=== PATIENT | female | born 1960 | race African-American/Black ===

== ENCOUNTER → 2017-03-30 | Outpatient (CLI) | payer BC, MEDICARE ==
[2017-03-30 12:26] LABS: HEMATOCRIT 25.1 % (36.0-47.0); HEMOGLOBIN 8.5 g/dL (12.0-15.5); HGB HCT DIFFERENCE 0.4; MEAN CORPUSCULAR HEMOGLOBIN 35.4 pg (27.0-33.4); MEAN CORPUSCULAR VOLUME 104 fl (80-97); RED BLOOD COUNT 2.41 10^6/uL (3.72-5.28); RED CELL DISTRIBUTION WIDTH 16.7 % (11.5-14.0); WHITE BLOOD COUNT 4.7 10^3/uL (4.0-10.5)
[2017-03-30 12:42] LABS: ALANINE AMINOTRANSFERASE 29 U/L (9-52); ALKALINE PHOSPHATASE 82 U/L (38-126); ANION GAP 12 (5-19); ASPARTATE AMINO TRANSFERASE 35 U/L (14-36); BILIRUBIN,DIRECT 0.5 mg/dL (0.0-0.4); BILIRUBIN,TOTAL 2.1 mg/dL (0.2-1.3); BLOOD UREA NITROGEN 11 mg/dL (7-20); CALCIUM 9.1 mg/dL (8.4-10.2); CARBON DIOXIDE 28 mmol/L (22-30); CHLORIDE 101 mmol/L (98-107); CHOLESTEROL 143.38 mg/dL (0-200); CREATININE RESULT 0.66 mg/dL (0.52-1.25); Direct HDL 53 mg/dL (>40); GLUCOSE 91 mg/dL (75-110); POTASSIUM 4.2 mmol/L (3.6-5.0); SODIUM 140.7 mmol/L (137-145); TOTAL PROTEIN 7.6 g/dL (6.3-8.2); TRIGLYCERIDES 78 mg/dL (<150)
[2017-03-30 12:53] LABS: DIRECT LDL 54 mg/dL (<100)
[2017-03-30 13:05] LABS: BASOPHILS % (MANUAL) 1 % (0-2); EOSINOPHILS % (MANUAL) 3 % (0-6); LYMPHOCYTES % (MANUAL) 44 % (13-45); NUCLEATED RED BLOOD CELLS 4 /100 WBC (0); TOTAL CELLS COUNTED 100
[2017-03-30 13:06] LABS: HYPOCHROMASIA 1+
[2017-03-30 13:07] LABS: ANISOCYTOSIS 1+; OVALOCYTES SLIGHT; POIKILOCYTOSIS 2+; POLYCHROMASIA 1+; SCHISTOCYTES SLIGHT; TARGET CELLS 1+; TOXIC GRANULATION SLIGHT; TOXIC VACUOLATION PRESENT
[2017-03-30 13:09] LABS: HOWELL-JOLLY BODIES PRESENT
== END ==
LOC: LAB 12:06
PROVIDERS: ATTEND Internal Medicine
DX: E78.2 Mixed hyperlipidemia (principal); Z13.1 Encounter for screening for diabetes mellitus; E55.9 Vitamin D deficiency, unspecified; E66.9 Obesity, unspecified; Z79.899 Other long term (current) drug therapy
CPT/HCPCS: 36415; 80053; 80061; 82306; 84443; 85025

== ENCOUNTER 2017-05-09 04:57 | Emergency (ER) | payer BC, MEDICARE ==
[2017-05-09] MEDS ORDERED: NORMAL SALINE 1000 ML 1,000 ML IV ONE (07:00)
[2017-05-09 08:26] LABS: HEMATOCRIT 27.7 % (36.0-47.0); HEMOGLOBIN 9.4 g/dL (12.0-15.5); HGB HCT DIFFERENCE 0.5; MEAN CORPUSCULAR HEMOGLOBIN 34.6 pg (27.0-33.4); MEAN CORPUSCULAR VOLUME 102 fl (80-97); RED BLOOD COUNT 2.72 10^6/uL (3.72-5.28); WHITE BLOOD COUNT 5.6 10^3/uL (4.0-10.5)
[2017-05-09 08:27] LABS: APPEARANCE,URINE CLEAR; BILIRUBIN,URINE NEGATIVE (NEGATIVE); GLUCOSE, URINE NEGATIVE (NEGATIVE); KETONES,URINE NEGATIVE (NEGATIVE); LEUKOCYTE ESTERASE,URINE TRACE (NEGATIVE); NITRITE,URINE NEGATIVE (NEGATIVE); PROTEIN,URINE NEGATIVE (NEGATIVE); URINE SPECIFIC GRAVITY 1.006
[2017-05-09 08:40] LABS: ANION GAP 14 (5-19); BLOOD UREA NITROGEN 13 mg/dL (7-20); CALCIUM 9.4 mg/dL (8.4-10.2); CARBON DIOXIDE 27 mmol/L (22-30); CHLORIDE 102 mmol/L (98-107); CREATININE RESULT 0.65 mg/dL (0.52-1.25); GLUCOSE 116 mg/dL (75-110); LIPASE 123.2 U/L (23-300); POTASSIUM 4.3 mmol/L (3.6-5.0); SODIUM 142.8 mmol/L (137-145)
[2017-05-09] MEDS ORDERED: CEFTRIAXONE 1 GM/D5W RTU 50 ML IV ONE (08:46)
[2017-05-09 08:53] LABS: BAND NEUTROPHILS % (MANUAL) 1 % (3-5); BASOPHILS % (MANUAL) 0 % (0-2); EOSINOPHILS % (MANUAL) 3 % (0-6); LYMPHOCYTES % (MANUAL) 35 % (13-45); NUCLEATED RED BLOOD CELLS 3 /100 WBC (0); TOTAL CELLS COUNTED 100
[2017-05-09 08:55] LABS: ANISOCYTOSIS 1+; OVALOCYTES 1+; POIKILOCYTOSIS 1+; TARGET CELLS 1+; TOXIC GRANULATION 1+
--- NOTE | 2017-05-09 08:58 | RADIOLOGY REPORT (SQ) ---
EXAM DESCRIPTION: CHEST PA/LAT COMPLETED DATE/TIME: 05/09/2017 8:45 am REASON FOR STUDY: dizzy COMPARISON: 07/01/2013 EXAM PARAMETERS: NUMBER OF VIEWS: two views TECHNIQUE: Digital Frontal and Lateral radiographic views of the chest acquired. RADIATION DOSE: NA LIMITATIONS: none FINDINGS: LUNGS AND PLEURA: Minimal left basilar scarring. No acute opacities, masses or pneumothor ax. No pleural effusion. MEDIASTINUM AND HILAR STRUCTURES: No masses or contour abnormalities. HEART AND VASCULAR STRUCTURES: Heart normal size. No evidence for failure. BONES: No acute findings. Chronic sclerosis of the humeral heads. HARDWARE: None in the chest. OTHER: No other significant finding. IMPRESSION: No evidence of acute cardiopulmonary disease. TECHNICAL DOCUMENTATION: JOB ID: [id number] [employer]- All Rights Reserved
--- NOTE | 2017-05-09 09:20 | ER Document Report ---
ED General - General Chief Complaint: Dizziness Stated Complaint: DIZZINESS Time Seen by Provider: 05/09/17 06:59 TRAVEL OUTSIDE OF THE [place] IN LAST 30 DAYS: No - HPI Patient complains to provider of: Dizziness Notes: Patient states dizziness ongoing for the last 24 hours. Patient states worse when changing from sitting to standing. Patient states she has been drinking plenty of fluids denies any excessive out door activities. 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 Patient states she has Vicodin at home however has not taken anything for her pain. Denies any trauma. Patient denies fevers chills nausea vomiting. - Related Data Allergies/Adverse Reactions: Shellfish * [Shellfish] Allergy (Unknown, Verified 08/05/14 19:29) ketorolac [Ketorolac] Allergy (Verified 08/05/14 19:29) Past Medical History - Social History Smoking Status: Never Smoker Chew tobacco use (# tins/day): No Frequency of alcohol use: Occasional Drug Abuse: None Family History: Reviewed & Not Pertinent Patient has suicidal ideation: No Patient has homicidal ideation: No - Past Medical History Cardiac Medical History: Reports: Hx Heart Murmur Pulmonary Medical History: Denies: Hx Tuberculosis Renal/ Medical History: Denies: Hx Peritoneal Dialysis Psychiatric Medical History: Denies: Hx Depression Past Surgical History: Reports: Hx Orthopedic Surgery - L hip replacement. Denies: Hx Pacemaker - Immunizations Hx Diphtheria, Pertussis, Tetanus Vaccination: Yes Hx Pneumococcal Vaccination: 11/20/09 Review of Systems - Review of Systems Constitutional: No symptoms reported EENT: No symptoms reported Cardiovascular: No symptoms reported Respiratory: No symptoms reported Gastrointestinal: No symptoms reported Genitourinary: No symptoms reported Female Genitourinary: No symptoms reported Musculoskeletal: No symptoms reported Skin: No symptoms reported Hematologic/Lymphatic: No symptoms reported Neurological/Psychological: Other - Dizziness -: Yes All other systems reviewed and negative Physical Exam - Vital signs Vitals: Temp Pulse Resp BP Pulse Ox 97.5 F 75 18 130/73 H 99 05/09/17 05:02 05/09/17 05:02 05/09/17 05:02 05/09/17 05:02 05/09/17 05:02 Interpretation: Normal - General General appearance: Appears well, Alert - HEENT Head: Normocephalic, Atraumatic Eyes: Normal Pupils: PERRL - Respiratory Respiratory status: No respiratory distress Chest status: Nontender Breath sounds: Normal Chest palpation: Normal - Cardiovascular Rhythm: Regular Heart sounds: Normal auscultation Murmur: No - Abdominal Inspection: Normal Distension: No distension Bowel sounds: Normal Tenderness: Nontender Organomegaly: No organomegaly - Back Back: Normal, Nontender - Extremities General upper extremity: Normal inspection, Nontender, Normal color, Normal ROM , Normal temperature General lower extremity: Normal inspection, Nontender, Normal color, Normal ROM , Normal temperature, Normal weight bearing. No: Kathy's sign - Neurological Neuro grossly intact: Yes Cognition: Normal Orientation: AAOx4 [place] Coma Scale Eye Opening: Spontaneous [place] Coma Scale Verbal: Oriented Wendy Coma Scale Motor: Obeys Commands [place] Coma Scale Total: 15 Speech: Normal Motor strength normal: LUE, RUE, LLE, RLE Sensory: Normal - Psychological Associated symptoms: Normal affect, Normal mood - Skin Skin Temperature: Warm Skin Moisture: Dry Skin Color: Normal Course - Re-evaluation Re-evalutation: 05/09/17 14:25 Orthostatics were positive. Urinalysis shows possible beginning of urinary tract infection. Patient was given a dose of antibiotics and will be discharged home on prescription antibiotics. Patient is encouraged follow-up with her primary care physician for further evaluation and encouraged to drink plenty of fluids - Vital Signs Vital signs: Temp Pulse Resp BP Pulse Ox 98.1 F 71 18 120/72 99 05/09/17 10:31 05/09/17 10:31 05/09/17 10:31 05/09/17 10:31 05/09/17 10:31 - Laboratory Result Diagrams: 05/09/17 08:05 05/09/17 08:05 Laboratory results interpreted by me: 05/09/17 05/09/17 05/09/17 08:05 08:05 08:05 RBC 2.72 L Hgb 9.4 L Hct 27.7 L MCV 102 H MCH 34.6 H RDW 17.0 H Band Neutrophils % 1 L Metamyelocytes % 1 H Retic Count (auto) 6.46 H Absolute Retic 0.176 H Glucose 116 H Urine Urobilinogen 4.0 H Ur Leukocyte Esterase TRACE H Discharge - Discharge Clinical Impression: Orthostatic dizziness Urinary tract infection Qualifiers: Urinary tract infection type: site unspecified Hematuria presence: without hematuria Qualified Code(s): N39.0 - Urinary tract infection, site not specified Disposition: HOME, SELF-CARE Instructions: Urinary Tract Infection ([facility]), Dizziness ([facility]), Dehydration ([facility]) Additional Instructions: Your vital signs today and laboratory findings are suggestive of dehydration. Your urinalysis also shows signs of infection. We will treat her infection with antibiotic on Macrobid. I will send her urine for culture. Culture results will take approximately 48-72 hours. If we need to change her antibiotics we can contact you. I would also recommend she follow-up with your doctor in 3-5 days for reevaluation. Please make sure that she drink plenty water to stay hydrated. Prescriptions: Nitrofurantoin/Nitrofuran Mac [Macrobid 100 mg Capsule] 1 tab PO BID #14 capsule Forms: Return to Work Referrals: PANKAJ CARDONA MD [Primary Care Provider] - Follow up in 3-5 days
[2017-05-09 10:32] VITALS: BP 120/72
--- NOTE | 2017-05-09 12:40 | EKG REPORT ---
SEVERITY:- BORDERLINE ECG - SINUS RHYTHM BORDERLINE T ABNORMALITIES, ANTERIOR LEADS : Confirmed by: Christina Butler MD 09-May-2017 12:39:55
== END 2017-05-09 10:32 | disposition home or self-care (01) ==
LOC: ER 04:57
DX: R42 Dizziness and giddiness (principal); N39.0 Urinary tract infection, site not specified; D57.1 Sickle-cell disease without crisis; Z91.013 Allergy to seafood; Z88.8 Allergy status to other drugs, medicaments and biological substances
CPT/HCPCS: 93005; 99284; 96361; 96365; 36415; 87086; 83690; 85025; 85045; 80048; 81001; 71020; 93010; J7030; J0696

== ENCOUNTER → 2017-06-05 | Outpatient (CLI) | payer BC, MEDICARE ==
--- NOTE | 2017-06-05 15:27 | RADIOLOGY REPORT (SQ) ---
EXAM DESCRIPTION: HIP LEFT AP/LATERAL COMPLETED DATE/TIME: 06/05/2017 2:38 pm REASON FOR STUDY: PAIN IN LEFT HIP (M25.552) M24.662 ANKYLOSIS, LEFT KNEE M25.552 PAIN IN LEFT HIP COMPARISON: 06/22/2016 NUMBER OF VIEWS: Two views. TECHNIQUE: AP pelvis and additional frog-leg view of the left hip. LIMITATIONS: None. FINDINGS: MINERALIZATION: Normal. LEFT HIP: Status post left hip arthroplasty. Acetabular cup and femoral stem in good position. No l oosening. No acute bony changes. Appearance is stable when compared to the previous study. RIGHT HIP: Slightly sclerotic change right femoral head that is stable. Contour normal. Avascular n ecrosis may be a consideration. PUBIS AND ISCHIUM: No fracture. PELVIS: No fracture. SACRUM: No fracture or dislocation. No worrisome bone lesions. LOWER LUMBAR SPINE: Mild to moderate disc degeneration L4-L5. SOFT TISSUES: No findings. OTHER: No other significant finding. IMPRESSION: Status post left hip arthroplasty. Femoral stem and acetabular cup her in good position . No acute findings and no interval change since previous study. Slightly sclerotic appearance of t he right femoral head. See above discussion. TECHNICAL DOCUMENTATION: JOB ID: [id number] [employer]- All Rights Reserved
--- NOTE | 2017-06-05 15:36 | RADIOLOGY REPORT (SQ) ---
EXAM DESCRIPTION: FEMUR LEFT COMPLETED DATE/TIME: 06/05/2017 2:38 pm REASON FOR STUDY: PAIN IN LEFT HIP (M25.552) M24.662 ANKYLOSIS, LEFT KNEE M25.552 PAIN IN LEFT HIP COMPARISON: None. NUMBER OF VIEWS: Two views. TECHNIQUE: Two radiographic images acquired of the left femur to include hip and knee in at least on e projection. LIMITATIONS: None. FINDINGS: MINERALIZATION: Geographic pattern of the femoral condyles that is predominantly radioluc ent. . BONES: Femoral shaft is intact with no acute findings. Femoral stem noted proximal femur related to previous hip arthroplasty. SOFT TISSUES: No obvious swelling or foreign body. OTHER: No other significant finding. IMPRESSION: Alteration of the marrow pattern of the distal femur most likely related to infarction a ssociated with the history of sickle cell disease. No acute findings. TECHNICAL DOCUMENTATION: JOB ID: [id number] [employer]- All Rights Reserved
--- NOTE | 2017-06-05 15:38 | RADIOLOGY REPORT (SQ) ---
EXAM DESCRIPTION: KNEE LEFT 4 VIEW COMPLETED DATE/TIME: 06/05/2017 2:38 pm REASON FOR STUDY: ANKYLOSIS, LEFT KNEE (M24.662) M24.662 ANKYLOSIS, LEFT KNEE M25.552 PAIN IN LEFT HIP COMPARISON: None. NUMBER OF VIEWS: Four views. TECHNIQUE: AP, lateral, and both oblique radiographic images acquired of the left knee. LIMITATIONS: None. FINDINGS: MINERALIZATION: Alteration of the trabecular pattern of the femoral condyles and adjacent tibia plateau which is predominantly radiolucent with some associated sclerotic change. BONES: No acute fracture or dislocation. No worrisome bone lesions. JOINT: No effusion. No ankylosis. SOFT TISSUES: No soft tissue swelling. No radio-opaque foreign body. OTHER: No other significant finding. IMPRESSION: Alteration of the trabecular pattern of the femoral condyles and adjacent tibial plateau most likely root associated with bony infarcts secondary to the history of sickle cell disease. No fracture or other acute findings. No ankylosis. TECHNICAL DOCUMENTATION: JOB ID: [id number] [employer]- All Rights Reserved
== END ==
LOC: RAD 13:52
PROVIDERS: ATTEND Internal Medicine
DX: M24.662 Ankylosis, left knee (principal); M25.552 Pain in left hip

== ENCOUNTER → 2018-04-06 | Outpatient (CLI) | payer MEDICARE ==
[2018-04-06 10:10] LABS: HEMATOCRIT 25.4 % (36.0-47.0); HEMOGLOBIN 8.7 g/dL (12.0-15.5); MEAN CORPUSCULAR HEMOGLOBIN 36.1 pg (27.0-33.4); MEAN CORPUSCULAR HGB CONC 34.1 g/dL (32.0-36.0); MEAN CORPUSCULAR VOLUME 106 fl (80-97); PLATELET COUNT 316 10^3/uL (150-450); RED CELL DISTRIBUTION WIDTH 16.8 % (11.5-14.0); WHITE BLOOD COUNT 3.7 10^3/uL (4.0-10.5)
[2018-04-06 10:35] LABS: ABSOLUTE LYMPHOCYTES# (MANUAL) 1.7 10^3/uL (0.5-4.7); ABSOLUTE MONOCYTES # (MANUAL) 0.3 10^3/uL (0.1-1.4); ABSOLUTE NEUTROPHILS# (MANUAL) 1.4 10^3/uL (1.7-8.2); BASOPHILS % (MANUAL) 0 % (0-2); EOSINOPHILS % (MANUAL) 8 % (0-6); LYMPHOCYTES % (MANUAL) 44 % (13-45); MONOCYTES % (MANUAL) 9 % (3-13); NUCLEATED RED BLOOD CELLS 1 /100 WBC (0); SEGMENTED NEUTROPHILS % (MAN) 38 % (42-78); TOTAL CELLS COUNTED 100
[2018-04-06 10:37] LABS: ANISOCYTOSIS 1+; OVALOCYTES 1+; POIKILOCYTOSIS 1+
[2018-04-06 10:38] LABS: PLATELET COMMENT ADEQUATE; ROULEAUX 1+; SCHISTOCYTES SLIGHT; SICKLE RED CELLS 1+; TARGET CELLS 2+; TEAR DROP CELLS SLIGHT
[2018-04-06 10:49] LABS: TRIGLYCERIDES 74 mg/dL (<150)
[2018-04-06 11:00] LABS: DIRECT LDL 55 mg/dL (<100)
[2018-04-09 17:04] LABS: ALANINE AMINOTRANSFERASE 32 U/L (9-52); ALKALINE PHOSPHATASE 74 U/L (38-126); ANION GAP 13 (5-19); ASPARTATE AMINO TRANSFERASE 37 U/L (14-36); BILIRUBIN,DIRECT 0.4 mg/dL (0.0-0.4); BILIRUBIN,TOTAL 1.2 mg/dL (0.2-1.3); BLOOD UREA NITROGEN 18 mg/dL (7-20); CALCIUM 9.2 mg/dL (8.4-10.2); CARBON DIOXIDE 26 mmol/L (22-30); CHLORIDE 104 mmol/L (98-107); GLUCOSE 107 mg/dL (75-110); POTASSIUM 4.1 mmol/L (3.6-5.0); SODIUM 143.2 mmol/L (137-145); TOTAL PROTEIN 7.8 g/dL (6.3-8.2)
== END ==
LOC: LAB 09:26
PROVIDERS: ATTEND Internal Medicine
DX: Z00.00 Encounter for general adult medical examination without abnormal findings (principal); E66.9 Obesity, unspecified; E55.9 Vitamin D deficiency, unspecified; Z13.1 Encounter for screening for diabetes mellitus; Z13.29 Encounter for screening for other suspected endocrine disorder
CPT/HCPCS: 36415; 80053; 80061; 82306; 83036; 84443; 85025

== ENCOUNTER 2018-09-21 23:13 | Emergency (ER) | payer MEDICARE ==
[2018-09-22] MEDS ORDERED: METOCLOPRAMIDE HCL INJ/PF 10 MG/2 ML SDV IV ONE (00:15)
[2018-09-22] MEDS ORDERED: NORMAL SALINE 1000 ML 1,000 ML IV ONE (00:15)
[2018-09-22] MEDS ORDERED: DIPHENHYDRAMINE HCL 50 MG/ML VIAL IV ONE (00:15)
[2018-09-22 01:11] LABS: ABSOLUTE RETICS # 0.233 10^6/uL (0.028-0.122); HEMATOCRIT 22.5 % (36.0-47.0); MEAN CORPUSCULAR HEMOGLOBIN 34.1 pg (27.0-33.4); MEAN CORPUSCULAR HGB CONC 35.8 g/dL (32.0-36.0); MEAN CORPUSCULAR VOLUME 95 fl (80-97); PLATELET COUNT 351 10^3/uL (150-450); RED BLOOD COUNT 2.36 10^6/uL (3.72-5.28); RED CELL DISTRIBUTION WIDTH 17.9 % (11.5-14.0); WHITE BLOOD COUNT 7.6 10^3/uL (4.0-10.5)
[2018-09-22 01:17] LABS: ANION GAP 11 (5-19); BLOOD UREA NITROGEN 15 mg/dL (7-20); CALCIUM 9.4 mg/dL (8.4-10.2); CARBON DIOXIDE 26 mmol/L (22-30); CHLORIDE 105 mmol/L (98-107); GLUCOSE 115 mg/dL (75-110); POTASSIUM 4.1 mmol/L (3.6-5.0); SODIUM 142.4 mmol/L (137-145)
[2018-09-22 01:31] LABS: ABSOLUTE LYMPHOCYTES# (MANUAL) 2.3 10^3/uL (0.5-4.7); ABSOLUTE MONOCYTES # (MANUAL) 0.7 10^3/uL (0.1-1.4); ABSOLUTE NEUTROPHILS# (MANUAL) 4.6 10^3/uL (1.7-8.2); ANISOCYTOSIS 1+; BASOPHILS % (MANUAL) 0 % (0-2); EOSINOPHILS % (MANUAL) 1 % (0-6); LYMPHOCYTES % (MANUAL) 30 % (13-45); MONOCYTES % (MANUAL) 9 % (3-13); NUCLEATED RED BLOOD CELLS 3 /100 WBC (0); POLYCHROMASIA 1+; SEGMENTED NEUTROPHILS % (MAN) 60 % (42-78); TOTAL CELLS COUNTED 100
[2018-09-22 01:32] LABS: PLATELET COMMENT ADEQUATE; SICKLE RED CELLS 1+
[2018-09-22] MEDS ORDERED: HYDROMORPHONE HCL INJ/PF 2 MG/ML AMPULE IV ONE ×2 (02:29→04:14)
[2018-09-22] MEDS ORDERED: ONDANSETRON HCL INJ/PF 4 MG/2 ML SDV IV ONE (02:30)
--- NOTE | 2018-09-22 03:53 | RADIOLOGY REPORT (SQ) ---
EXAM DESCRIPTION: CT HEAD ANGIOGRAPHY WITHOUT THEN WITH IV CONTRAST COMPLETED DATE/TME: 09/22/2018 02:30 CLINICAL HISTORY: 58 years, Female, HEADACHE (Please obtain venous phase imaging) COMPARISON: None. TECHNIQUE: 637 Images stored on PACS. All CT scanners at this facility use dose modulation, iterative reconstruction, and/or weight based dosing when appropriate to reduce radiation dose to as low as reasonably achievable (ALARA). CTA of the brain was performed. Axial images were obtained with coronal and sagittal MIPS reconstructions imaging was also performed prior to contrast administration. [facility]: Dose Right [facility]: CareDose [facility]: Dose Right [facility]: Teradose 4D [facility]: BookFresh LIMITATIONS: None. FINDINGS: Precontrast images show extensive/dense pleural-based calcifications in the frontoparietal region and left paramedian falx. The vertebral basilar system is unremarkable. Negative for basilar tip aneurysm. The petrous portions of the bilateral internal carotid arteries are widely patent and unremarkable. Remaining intracranial portions of the internal carotid arteries are patent and unremarkable. Moderate degree of venous interference however no CTA evidence for aneurysm or arteriovenous malformation. No CTA evidence for stenosis, vascular encasement, or displacement. IMPRESSION: Unremarkable CTA of the brain TECHNICAL DOCUMENTATION: Quality ID # [id number]: Final reports with documentation of one or more dose reduction techniques (e.g., Automated exposure control, adjustment of the mA and/or kV according to patient size, use of iterative reconstruction technique) 2010 [employer]- All Rights Reserved
--- NOTE | 2018-09-22 04:16 | ER Document Report ---
ED General - General Chief Complaint: Headache Stated Complaint: HEADACHE Time Seen by Provider: 09/22/18 00:04 Notes: Patient is a pleasant 48-year-old female who has a history of sickle cell disease who presents with complaint of a intermittent headache that is been ongoing since Monday of this week. Patient says the headache comes and goes. Says gradual in onset. She usually gets some pressure pain behind the eyes. Usually bilateral. Says sometimes it will go into the top of her head. Some nausea but no vomiting. Lights do make the headache worse. No previous history of migraines. She saw this week and they prescribed her Maxalt. She says it helps some but does not completely relieve the headache and therefore she came to the ER tonight. No chest pain. No shortness of breath. No joint pain. No other pains that she would typically have with a sickle cell crisis. No fevers or recent infections. No focal weakness or numbness. No focal neurologic deficits. No strokelike symptoms. TRAVEL OUTSIDE OF THE [place] IN LAST 30 DAYS: No - Related Data Allergies/Adverse Reactions: Shellfish * [Shellfish] Allergy (Unknown, Verified 09/22/17 11:37) ketorolac [Ketorolac] Allergy (Verified 09/22/17 11:37) Past Medical History - Social History Smoking Status: Unknown if Ever Smoked Frequency of alcohol use: None Drug Abuse: None Family History: Reviewed & Not Pertinent Patient has suicidal ideation: No Patient has homicidal ideation: No - Past Medical History Cardiac Medical History: Reports: Hx Heart Murmur Pulmonary Medical History: Denies: Hx Tuberculosis Renal/ Medical History: Denies: Hx Peritoneal Dialysis Psychiatric Medical History: Denies: Hx Depression Past Surgical History: Reports: Hx Orthopedic Surgery - L hip replacement. Denies: Hx Pacemaker - Immunizations Hx Diphtheria, Pertussis, Tetanus Vaccination: Yes Hx Pneumococcal Vaccination: 11/20/09 Review of Systems - Review of Systems Notes: My Normal Review Basic REVIEW OF SYSTEMS: CONSTITUTIONAL : Denies fever, chills, or sweats. Denies recent illness. EENT: Denies eye, ear, throat, or mouth pain or symptoms. Denies nasal or sinus congestion. CARDIOVASCULAR: Denies chest pain. RESPIRATORY: Denies cough, cold, or chest congestion. Denies shortness of breath, difficulty breathing, or wheezing. GASTROINTESTINAL: Denies abdominal pain. Denies nausea, vomiting, or diarrhea. MUSCULOSKELETAL: Denies neck or back pain or joint pain or swelling. SKIN: Denies rash or skin lesions. HEMATOLOGIC : Sickle cell disease NEUROLOGICAL: Denies altered mental status or loss of consciousness. Has a headache. Denies weakness or paralysis or loss of use of either side. Denies problems with gait or speech. Denies sensory or motor loss. ALL OTHER SYSTEMS REVIEWED AND NEGATIVE. Physical Exam - Vital signs Vitals: Temp Pulse Resp BP Pulse Ox 98.4 F 74 20 126/58 H 98 09/21/18 23:24 09/21/18 23:24 09/21/18 23:24 09/21/18 23:24 09/21/18 23:24 - Notes Notes: General Appearance: Well nourished, alert, cooperative, no acute distress, mild obvious discomfort. Vitals: reviewed, See vital signs table. Head: no swelling or tenderness to the head Eyes: PERRL, EOMI, Conjuctiva clear. No redness or abnormality to the eyes. Mouth: No decreasd moisture Neck: Supple, no neck tenderness, No thyromegaly Lungs: No wheezing, No rales, No rhonci, No accessory muscle use, good air exchange bilaterally. Heart: Normal rate, Regular rythm, No murmur, no rub Abdomen: Normal BS, soft, No rigidity, No abdominal tenderness, No guarding, no rebound, no abdominal masses, no organomegaly Extremities: strength 5/5 in all extremities, good pulses in all extremities, no swelling or tenderness in the extremities, no edema. Skin: warm, dry, appropriate color, no rash Neuro: speech clear, oriented x 3, normal affect, responds appropriately to questions. Nerves II through XII are intact. Distal sensation intact. Patient moves all extremities without difficulty. Normal Romberg. Patient is able to stand and maintain balance without difficulty. Course - Re-evaluation Re-evalutation: 09/22/18 04:13 Patient's headache is almost completely resolved. She does just has a small amount of headache left. We will give her 1 dose pain medicine. CTA with venous phase contrast was performed. No evidence of aneurysm and no evidence of venous sinus thrombosis. Patient be reevaluated after pain medicine given. 09/22/18 05:22 His headache is resolved. She did not want the second dose of pain medicine as her headache resolved by the time they got there to give her the pain medicine. We did a CT scan read again. The radiologist actually did not comment specifically on the venous phase contrast. I therefore called the nighttime radiologist line and spoke with Dr. Hamilton who reviewed the images. She says there is no evidence of venous sinus thrombosis and she will contact Dr. Clark tomorrow to make an addendum to her note demonstrating this. Patient looks well and feels safe to be discharged home. I strongly encouraged her return to ER if she has recurrent worsening headaches, vomiting, any pain throughout her body, or she has any further concerns. Patient agrees with plan will be discharged home. Dictation of this chart was performed using voice recognition software; therefore, there may be some unintended grammatical errors. - Vital Signs Vital signs: Temp Pulse Resp BP Pulse Ox 97.8 F 77 12 111/49 L 95 09/22/18 03:48 09/22/18 03:48 09/22/18 03:48 09/22/18 03:48 09/22/18 03:48 - Laboratory Result Diagrams: 09/22/18 00:47 09/22/18 00:47 Laboratory results interpreted by me: 09/22/18 09/22/18 00:47 00:47 RBC 2.36 L Hgb 8.0 L Hct 22.5 L MCH 34.1 H RDW 17.9 H Retic Count (auto) 9.90 H Absolute Retic 0.233 H Glucose 115 H Discharge - Discharge Clinical Impression: Headache Qualifiers: Headache type: unspecified Headache chronicity pattern: episodic headache Intractability: not intractable Qualified Code(s): R51 - Headache Additional Instructions: Please take the Reglan with 25 mg of Benadryl at the first onset of headache. Please return to ER if the headache continues to progress, you have fevers, any weakness or numbness in your extremities, or any new pain throughout your body. Please follow-up closely with your primary care doctor. Please make an appointment to see the neurologist if your headaches continue to recur. The neurologist name is Dr. Lemon. Prescriptions: Metoclopramide HCl [Reglan 10 mg Tablet] 1 tab PO ASDIR PRN #25 tablet PRN Reason: Referrals: PANKAJ CARDONA MD [Primary Care Provider] - 09/24/18 MIKE LEMON MD [NO LOCAL MD] - Follow up in 3-5 days
[2018-09-22 05:49] VITALS: BP 102/58
== END 2018-09-22 05:47 | disposition home or self-care (01) ==
LOC: ER 23:13
DX: R51 Headache (principal); R11.0 Nausea
CPT/HCPCS: 99284; 96361; 96374; 96375; 36415; 85025; 85045; 80048; 70496; J1200; J2765; J1170; J2405; J7030

== ENCOUNTER 2018-10-23 20:43 | Emergency (ER) | payer SELFPAY ==
[2018-10-23] MEDS ORDERED: NORMAL SALINE 1000 ML 1,000 ML IV ONE (23:16)
[2018-10-23] MEDS ORDERED: ONDANSETRON HCL INJ/PF 4 MG/2 ML SDV IV ONE (23:16)
[2018-10-23] MEDS ORDERED: MORPHINE SULFATE 10 MG/ML INJ IV ONE (23:16)
[2018-10-23 23:28] LABS: HEMATOCRIT 21.8 % (36.0-47.0); MEAN CORPUSCULAR HEMOGLOBIN 32.7 pg (27.0-33.4); MEAN CORPUSCULAR HGB CONC 34.8 g/dL (32.0-36.0); MEAN CORPUSCULAR VOLUME 94 fl (80-97); PLATELET COUNT 384 10^3/uL (150-450); RED BLOOD COUNT 2.32 10^6/uL (3.72-5.28); RED CELL DISTRIBUTION WIDTH 17.9 % (11.5-14.0); WHITE BLOOD COUNT 8.6 10^3/uL (4.0-10.5)
[2018-10-23 23:35] LABS: ALANINE AMINOTRANSFERASE 43 U/L (9-52); ALBUMIN 4.2 g/dL (3.5-5.0); ALKALINE PHOSPHATASE 87 U/L (38-126); ANION GAP 10 (5-19); ASPARTATE AMINO TRANSFERASE 54 U/L (14-36); BILIRUBIN,DIRECT 0.5 mg/dL (0.0-0.4); BILIRUBIN,TOTAL 2.3 mg/dL (0.2-1.3); BLOOD UREA NITROGEN 14 mg/dL (7-20); CALCIUM 9.5 mg/dL (8.4-10.2); CARBON DIOXIDE 31 mmol/L (22-30); CHLORIDE 104 mmol/L (98-107); GLUCOSE 99 mg/dL (75-110); POTASSIUM 4.3 mmol/L (3.6-5.0)
[2018-10-23 23:38] LABS: APPEARANCE,URINE CLEAR; BILIRUBIN,URINE NEGATIVE (NEGATIVE); COLOR,URINE YELLOW; GLUCOSE, URINE NEGATIVE (NEGATIVE); KETONES,URINE NEGATIVE (NEGATIVE); LEUKOCYTE ESTERASE,URINE SMALL (NEGATIVE); NITRITE,URINE NEGATIVE (NEGATIVE); PROTEIN,URINE NEGATIVE (NEGATIVE); URINE SPECIFIC GRAVITY 1.011
[2018-10-23 23:39] LABS: RETICULOCYTE COUNT (AUTO) 9.86 % (0.66-2.85)
[2018-10-23] MEDS ORDERED: FENTANYL CITRATE INJ/PF 100 MCG/2 ML AMPUL IV ONE (23:41)
--- NOTE | 2018-10-23 23:42 | ER Document Report ---
ED General - General Chief Complaint: Sickle Cell Crisis Stated Complaint: ABDOMINAL PAIN Time Seen by Provider: 10/23/18 23:05 Notes: Patient is a very pleasant 58-year-old female presents with complaint of sickle cell disease. She has pain into her rib cage and both hips. She had similar pain in the past with her sickle cell crises. She says her sickle cell disease actually fairly well controlled. She has not been admitted since 2013. She is followed by Dr. Cardona. She denies any fevers. No abdominal pain. She says she has pain across her lower ribs and feels like a band across her ribs. No history of coronary disease. No vomiting. Some mild nausea. No trauma to her hips but does have some pain in her hips. No redness or swelling and no fevers. She is able to walk and bear weight without too much difficulty. Patient says she has been taking Motrin at home for the pain but is not been helping and therefore she is come to the ER. TRAVEL OUTSIDE OF THE [place] IN LAST 30 DAYS: No - Related Data Allergies/Adverse Reactions: Shellfish * [Shellfish] Allergy (Unknown, Verified 09/22/17 11:37) ketorolac [Ketorolac] Allergy (Verified 09/22/17 11:37) morphine Allergy (Verified 10/23/18 23:53) Hives Past Medical History - Social History Smoking Status: Never Smoker Frequency of alcohol use: None Drug Abuse: None Family History: Reviewed & Not Pertinent - Past Medical History Cardiac Medical History: Reports: Hx Heart Murmur Pulmonary Medical History: Denies: Hx Tuberculosis Renal/ Medical History: Denies: Hx Peritoneal Dialysis Psychiatric Medical History: Denies: Hx Depression Past Surgical History: Reports: Hx Orthopedic Surgery - L hip replacement. Denies: Hx Pacemaker - Immunizations Hx Diphtheria, Pertussis, Tetanus Vaccination: Yes Hx Pneumococcal Vaccination: 11/20/09 Review of Systems - Review of Systems Notes: My Normal Review Basic REVIEW OF SYSTEMS: CONSTITUTIONAL : Denies fever, chills, or sweats. Denies recent illness. EENT: Denies eye, ear, throat, or mouth pain or symptoms. Denies nasal or sinus congestion. CARDIOVASCULAR: Denies chest pain. RESPIRATORY: Denies cough, cold, or chest congestion. Denies shortness of breath, difficulty breathing, or wheezing. GASTROINTESTINAL: Denies abdominal pain. Denies nausea, vomiting, or diarrhea. GENITOURINARY: Denies difficulty urinating, painful urination, burning, frequency, or blood in urine. MUSCULOSKELETAL: Rib pain and bilateral hip pain. SKIN: Denies rash or skin lesions. HEMATOLOGIC : Sickle cell disease NEUROLOGICAL: Denies sensory or motor loss. ALL OTHER SYSTEMS REVIEWED AND NEGATIVE. Physical Exam - Vital signs Vitals: Temp Pulse Resp BP Pulse Ox 98.7 F 78 16 106/56 L 99 10/23/18 21:09 10/23/18 21:09 10/23/18 21:09 10/23/18 21:09 10/23/18 21:09 - Notes Notes: General Appearance: Well nourished, alert, cooperative, no acute distress, mild obvious discomfort. Vitals: reviewed, See vital signs table. Head: no swelling or tenderness to the head Eyes: PERRL, EOMI, Conjuctiva clear Mouth: No decreasd moisture Lungs: No wheezing, No rales, No rhonci, No accessory muscle use, good air exchange bilaterally. Heart: Normal rate, Regular rythm, No murmur, no rub Abdomen: Normal BS, soft, No rigidity, No abdominal tenderness, No guarding, no rebound, no abdominal masses, no organomegaly Chest wall: No reproducible pain to palpation of the rib cage itself. Extremities: strength 5/5 in all extremities, good pulses in all extremities, no reproducible pain to palpation over the patient's joints including the hips. Full range of motion of the hips without pain., no edema. Skin: warm, dry, appropriate color, no rash Neuro: speech clear, oriented x 3, normal affect, responds appropriately to questions. Course - Re-evaluation Re-evalutation: 10/24/18 01:17 Patient's pain is much improved. She says she still has some pain but is much better than it was. She does not want any further treatments that she wants to go home to take care of her dog. I did obtain a troponin and EKG only because she had some pain over her lower ribs. She does not have any pain into the upper chest. I think is unlikely be cardiac in etiology. Initial EKG and troponin are unremarkable. Patient says pain feels very similar to her previous sickle cell pain. She does not have any findings consistent for acute chest syndrome. Her vital signs are normal. She has no fever. Lung herman are clear. At this time we feel she safe to be discharged home but I strongly encouraged her to return to ER if she has worsening recurrence of her pain, any pain into her chest, any difficulty breathing, any fevers, or any abdominal pain. Patient agrees with plan will be discharged home. Dictation of this chart was performed using voice recognition software; therefore, there may be some unintended grammatical errors. - Vital Signs Vital signs: Temp Pulse Resp BP Pulse Ox 98.7 F 78 19 106/56 L 95 10/23/18 21:09 10/23/18 21:09 10/23/18 23:29 10/23/18 21:09 10/23/18 23:29 - Laboratory Result Diagrams: 10/23/18 22:55 10/23/18 22:55 Laboratory results interpreted by me: 10/23/18 10/23/18 10/23/18 22:55 22:55 22:55 RBC 2.32 L Hgb 7.6 L Hct 21.8 L RDW 17.9 H Retic Count (auto) Absolute Retic Carbon Dioxide 31 H Total Bilirubin 2.3 H Direct Bilirubin 0.5 H AST 54 H Urine Urobilinogen 4.0 H Ur Leukocyte Esterase SMALL H 10/23/18 22:55 RBC Hgb Hct RDW Retic Count (auto) 9.86 H Absolute Retic 0.230 H Carbon Dioxide Total Bilirubin Direct Bilirubin AST Urine Urobilinogen Ur Leukocyte Esterase - EKG Interpretation by Me Additional EKG results interpreted by me: 10/23/18 23:41 EKG is reviewed and interpreted by me. EKG shows sinus rhythm with a rate of [address] segment elevation or depression. No ischemic T wave inversions. NM interval, QRS duration, QTc intervals are within normal range. Old EKG for comparison is from September 22, 2017. Discharge - Discharge Clinical Impression: Sickle cell pain crisis Condition: Good Disposition: HOME, SELF-CARE Additional Instructions: You can take 600 mg of ibuprofen every 6 hours and 500 mg of acetaminophen every 4 hours for pain. You said you have [place] at home. [place] has 325 mg of acetaminophen in it and therefore you have to be careful not to overdose and acetaminophen if you are also taking this. You can have a total of 4000 mg of acetaminophen in a 24-hour period. Please have a low threshold to return to the ER if you have recurrent worsening pain, any fevers, any pain going up anterior chest, any difficulty breathing, abdominal pain, or if you feel your pain is not well controlled. Please follow-up with Dr. Cardona within the next 1- 2 days for reevaluation. Forms: Return to Work Referrals: PANKAJ CARDONA MD [Primary Care Provider] - Follow up tomorrow
[2018-10-23 23:43] LABS: HEMOGLOBIN 7.6 g/dL (12.0-15.5)
[2018-10-23 23:50] LABS: ABSOLUTE LYMPHOCYTES# (MANUAL) 3.6 10^3/uL (0.5-4.7); ABSOLUTE MONOCYTES # (MANUAL) 0.8 10^3/uL (0.1-1.4); BASOPHILS % (MANUAL) 0 % (0-2); EOSINOPHILS % (MANUAL) 3 % (0-6); LYMPHOCYTES % (MANUAL) 42 % (13-45); MONOCYTES % (MANUAL) 9 % (3-13); NUCLEATED RED BLOOD CELLS 1 /100 WBC (0); SEGMENTED NEUTROPHILS % (MAN) 46 % (42-78); TOTAL CELLS COUNTED 100; TOXIC GRANULATION 1+
[2018-10-23 23:51] LABS: ANISOCYTOSIS 1+; HOWELL-JOLLY BODIES PRESENT; HYPOCHROMASIA SLIGHT; POIKILOCYTOSIS 1+; POLYCHROMASIA 1+; SCHISTOCYTES SLIGHT; SICKLE RED CELLS 1+; TARGET CELLS 1+; TOXIC VACUOLATION PRESENT
[2018-10-23 23:52] LABS: PLATELET COMMENT ADEQUATE; PLATELET GIANT PRESENT; PLATELET LARGE PRESENT
[2018-10-24 01:43] VITALS: BP 115/43
--- NOTE | 2018-10-24 11:57 | EKG REPORT ---
SEVERITY:- NORMAL ECG - SINUS RHYTHM : Confirmed by: Jackie Matthews 24-Oct-2018 11:57:30
== END 2018-10-24 01:43 | disposition home or self-care (01) ==
LOC: ER 20:43
DX: D57.00 Hb-SS disease with crisis, unspecified (principal); R07.81 Pleurodynia; M25.551 Pain in right hip; M25.559 Pain in unspecified hip; Z91.013 Allergy to seafood; Z88.5 Allergy status to narcotic agent; Z88.8 Allergy status to other drugs, medicaments and biological substances
CPT/HCPCS: 93005; 99284; 96361; 96374; 96375; 36415; 83690; 85025; 85045; 80053; 81001; 84484; 93010; J3010; J2405; J7030

== ENCOUNTER 2019-01-01 09:34 | Emergency (ER) | payer SELFPAY ==
[2019-01-01] MEDS ORDERED: ONDANSETRON HCL INJ/PF 4 MG/2 ML SDV IV ONE (09:50)
[2019-01-01] MEDS ORDERED: FENTANYL CITRATE INJ/PF 100 MCG/2 ML AMPUL IV ONE ×4 (09:50→14:07)
[2019-01-01] MEDS ORDERED: NORMAL SALINE 1000 ML 1,000 ML IV ONE (09:50)
--- NOTE | 2019-01-01 09:52 | ER Document Report ---
ED Medical Screen (RME) - General Chief Complaint: Sickle Cell Crisis Stated Complaint: BODY PAIN Time Seen by Provider: 01/01/19 09:46 Primary Care Provider: PANKAJ CARDONA MD [Primary Care Provider] - Follow up as needed Notes: 58 years old female with a history of sickle cell disease presents today with bilateral knee pain as well as burning sensation while urinating. No fever chills or other constitutional symptoms. On examination he appears jaundiced, and seems to be in moderate discomfort. TRAVEL OUTSIDE OF THE [place] IN LAST 30 DAYS: No - Related Data Allergies/Adverse Reactions: Shellfish * [Shellfish] Allergy (Unknown, Verified 01/01/19 09:36) ketorolac [Ketorolac] Allergy (Verified 01/01/19 09:36) morphine Allergy (Verified 01/01/19 09:36) Hives Past Medical History - Social History Chew tobacco use (# tins/day): No Frequency of alcohol use: None - Past Medical History Cardiac Medical History: Reports: Hx Heart Murmur Pulmonary Medical History: Denies: Hx Tuberculosis Renal/ Medical History: Denies: Hx Peritoneal Dialysis Psychiatric Medical History: Denies: Hx Depression Past Surgical History: Reports: Hx Orthopedic Surgery - L hip replacement. Denies: Hx Pacemaker - Immunizations Hx Diphtheria, Pertussis, Tetanus Vaccination: Yes Physical Exam - Vital signs Vitals: Temp Pulse Resp BP Pulse Ox 97.7 F 80 14 110/46 L 98 01/01/19 09:42 01/01/19 09:42 01/01/19 09:42 01/01/19 09:42 01/01/19 09:42 Course - Vital Signs Vital signs: Temp Pulse Resp BP Pulse Ox 97.7 F 80 14 110/46 L 98 01/01/19 09:42 01/01/19 09:42 01/01/19 09:42 01/01/19 09:42 01/01/19 09:42 Doctor's Discharge - Discharge Referrals: PANKAJ CARDONA MD [Primary Care Provider] - Follow up as needed
--- NOTE | 2019-01-01 10:49 | ER Document Report ---
ED General - General Chief Complaint: Sickle Cell Crisis Stated Complaint: BODY PAIN Time Seen by Provider: 01/01/19 09:46 Primary Care Provider: PANKAJ CARDONA MD [Primary Care Provider] - Follow up as needed Mode of Arrival: Ambulatory Information source: Patient Notes: This is a 58-year-old female with a history of sickle cell disease who presents to the emergency room with bilateral knee pain for the past 2 days. Patient denies any fever, chills, nausea, vomiting, chest pain or shortness of breath. She reports that she does not have a typical presentation of her sickle cell crisis and that it can be various symptoms. Records show that she was here with abdominal pain in October and that turned out to be a vaso-occlusive crisis. She does report dysuria. TRAVEL OUTSIDE OF THE [place] IN LAST 30 DAYS: No - HPI Onset: Yesterday Onset/Duration: Gradual Quality of pain: Dull Severity: Moderate Pain Level: 2 Associated symptoms: denies: Chest pain, Fever, Shortness of breath Exacerbated by: Movement Relieved by: Remaining still Similar symptoms previously: Yes Recently seen / treated by doctor: No - Related Data Allergies/Adverse Reactions: Shellfish * [Shellfish] Allergy (Unknown, Verified 01/01/19 09:36) ketorolac [Ketorolac] Allergy (Verified 01/01/19 09:36) morphine Allergy (Verified 01/01/19 09:36) Hives Past Medical History - General Information source: Patient - Social History Smoking Status: Never Smoker Cigarette use (# per day): No Chew tobacco use (# tins/day): No Frequency of alcohol use: None Drug Abuse: None Lives with: Spouse/Significant other Family History: Reviewed & Not Pertinent Patient has suicidal ideation: No Patient has homicidal ideation: No - Past Medical History Cardiac Medical History: Reports: Hx Heart Murmur Pulmonary Medical History: Reports: None Denies: Hx Tuberculosis Neurological Medical History: Reports: None Endocrine Medical History: Reports: None Renal/ Medical History: Reports: None. Denies: Hx Peritoneal Dialysis Malignancy Medical History: Reports: None GI Medical History: Reports: None Musculoskeletal Medical History: Reports Other - Sickle cell disease Skin Medical History: Reports None Psychiatric Medical History: Reports: None Denies: Hx Depression Traumatic Medical History: Reports: None Infectious Medical History: Reports: None Past Surgical History: Reports: Hx Orthopedic Surgery - L hip replacement. Denies: Hx Pacemaker - Immunizations Hx Diphtheria, Pertussis, Tetanus Vaccination: Yes Hx Pneumococcal Vaccination: 11/20/09 Review of Systems - Review of Systems Constitutional: denies: Chills, Fever EENT: No symptoms reported Cardiovascular: denies: Chest pain, Palpitations, Heart racing Respiratory: No symptoms reported Gastrointestinal: No symptoms reported Genitourinary: No symptoms reported Female Genitourinary: No symptoms reported Musculoskeletal: See HPI Skin: No symptoms reported Hematologic/Lymphatic: No symptoms reported Neurological/Psychological: No symptoms reported Physical Exam - Vital signs Vitals: Temp Pulse Resp BP Pulse Ox 97.7 F 80 14 110/46 L 98 01/01/19 09:42 01/01/19 09:42 01/01/19 09:42 01/01/19 09:42 01/01/19 09:42 Notes: Physical exam: GENERAL: Patient is alert and oriented x3, no acute distress. She is complaining of bilateral knee pain. HEAD: Atraumatic, normocephalic. EYES: Pupils equal round and reactive to light, extraocular movements intact, sclera anicteric, conjunctiva are normal. ENT: TMs normal, nares patent, oropharynx clear without exudates. Moist mucous membranes. NECK: Normal range of motion, supple without obvious mass or JVD. LUNGS: Breath sounds clear to auscultation bilaterally and equal. No wheezes rales or rhonchi. HEART: Regular rate and rhythm without murmurs, rubs or gallops. ABDOMEN: Soft, normoactive bowel sounds. No tenderness to palpation. No guarding, no rebound. No masses appreciated. EXTREMITIES: Normal range of motion, no pitting or edema. No clubbing or cyanosis. NEUROLOGICAL: Cranial nerves II through XII grossly intact. Normal speech, moving all extremities. PSYCH: Normal mood, normal affect. SKIN: Warm, Dry, normal turgor, no rashes or lesions noted. Course - Vital Signs Vital signs: Temp Pulse Resp BP Pulse Ox 98.0 F 85 16 103/46 L 98 01/01/19 15:33 01/01/19 15:33 01/01/19 15:33 01/01/19 15:33 01/01/19 15:33 - Laboratory Result Diagrams: 01/01/19 10:16 01/01/19 10:16 Laboratory results interpreted by me: 01/01/19 01/01/19 01/01/19 09:55 10:16 10:16 RBC 2.54 L Hgb 8.8 L Hct 25.1 L MCV 99 H MCH 34.5 H RDW 17.2 H Retic Count (auto) 6.65 H Absolute Retic 0.169 H Total Bilirubin 2.5 H Urine Urobilinogen 2.0 H Discharge - Discharge Clinical Impression: Vaso-occlusive sickle cell crisis Condition: Stable Disposition: HOME, SELF-CARE Additional Instructions: Recommendations: Rest, drink plenty of fluids, take oxycodone for pain. Take Zofran for nausea. Continue current medicines. Follow-up with your primary care doctor this week. Return to the emergency room for fever, chills, nausea, vomiting or worsening pain. Prescriptions: Oxycodone HCl [Oxy-Ir 5 mg Tablet] 5 mg PO Q6HP PRN #20 tablet PRN Reason: Ondansetron HCl [Zofran 4 mg Tablet] 1 - 2 tab PO Q4H PRN #10 tablet PRN Reason: Forms: Return to Work Referrals: PANKAJ CARDONA MD [Primary Care Provider] - Follow up as needed
[2019-01-01 10:55] LABS: ALANINE AMINOTRANSFERASE 27 U/L (9-52); ALBUMIN 4.4 g/dL (3.5-5.0); ALKALINE PHOSPHATASE 78 U/L (38-126); ANION GAP 9 (5-19); ASPARTATE AMINO TRANSFERASE 36 U/L (14-36); BILIRUBIN,DIRECT 0.4 mg/dL (0.0-0.4); BILIRUBIN,TOTAL 2.5 mg/dL (0.2-1.3); BLOOD UREA NITROGEN 12 mg/dL (7-20); CALCIUM 9.4 mg/dL (8.4-10.2); CARBON DIOXIDE 30 mmol/L (22-30); CHLORIDE 103 mmol/L (98-107); GLUCOSE 107 mg/dL (75-110); LIPASE 59.8 U/L (23-300); POTASSIUM 4.5 mmol/L (3.6-5.0); SODIUM 141.9 mmol/L (137-145)
[2019-01-01 10:57] LABS: ABSOLUTE RETICS # 0.169 10^6/uL (0.028-0.122); HEMATOCRIT 25.1 % (36.0-47.0); HEMOGLOBIN 8.8 g/dL (12.0-15.5); MEAN CORPUSCULAR HEMOGLOBIN 34.5 pg (27.0-33.4); MEAN CORPUSCULAR HGB CONC 34.9 g/dL (32.0-36.0); MEAN CORPUSCULAR VOLUME 99 fl (80-97); PLATELET COUNT 357 10^3/uL (150-450); RED BLOOD COUNT 2.54 10^6/uL (3.72-5.28); RED CELL DISTRIBUTION WIDTH 17.2 % (11.5-14.0); RETICULOCYTE COUNT (AUTO) 6.65 % (0.66-2.85); WHITE BLOOD COUNT 7.5 10^3/uL (4.0-10.5)
[2019-01-01 11:04] LABS: APPEARANCE,URINE CLEAR; BILIRUBIN,URINE NEGATIVE (NEGATIVE); COLOR,URINE YELLOW; GLUCOSE, URINE NEGATIVE (NEGATIVE); KETONES,URINE NEGATIVE (NEGATIVE); LEUKOCYTE ESTERASE,URINE NEGATIVE (NEGATIVE); NITRITE,URINE NEGATIVE (NEGATIVE); PROTEIN,URINE NEGATIVE (NEGATIVE); URINE SPECIFIC GRAVITY 1.011
[2019-01-01] MEDS ORDERED: RINGERS SOLUTION,LACTATED 1,000 ML IV ONE (11:13)
[2019-01-01 11:27] LABS: ABSOLUTE LYMPHOCYTES# (MANUAL) 2.1 10^3/uL (0.5-4.7); ABSOLUTE MONOCYTES # (MANUAL) 0.8 10^3/uL (0.1-1.4); ABSOLUTE NEUTROPHILS# (MANUAL) 4.4 10^3/uL (1.7-8.2); BASOPHILS % (MANUAL) 0 % (0-2); EOSINOPHILS % (MANUAL) 2 % (0-6); LYMPHOCYTES % (MANUAL) 28 % (13-45); MONOCYTES % (MANUAL) 11 % (3-13); NUCLEATED RED BLOOD CELLS 5 /100 WBC (0); SEGMENTED NEUTROPHILS % (MAN) 59 % (42-78); TOTAL CELLS COUNTED 100
[2019-01-01 11:28] LABS: ANISOCYTOSIS 2+; PLATELET COMMENT ADEQUATE; POLYCHROMASIA 1+; SICKLE RED CELLS 1+; TARGET CELLS 1+
[2019-01-01 15:34] VITALS: BP 103/46
== END 2019-01-01 15:33 | disposition home or self-care (01) ==
LOC: ER 09:34
DX: D57.00 Hb-SS disease with crisis, unspecified (principal); M25.561 Pain in right knee; M25.562 Pain in left knee; R30.0 Dysuria; Z91.013 Allergy to seafood; Z88.8 Allergy status to other drugs, medicaments and biological substances
CPT/HCPCS: 96376; 99284; 96361; 96374; 96375; 36415; 87086; 83690; 85025; 85045; 80053; 81001; J3010; J2405; J7030; J7120

== ENCOUNTER → 2019-01-25 | Outpatient (CLI) | payer OTHER ==
[2019-01-25 10:40] LABS: HEMATOCRIT 22.8 % (36.0-47.0); MEAN CORPUSCULAR HEMOGLOBIN 34.5 pg (27.0-33.4); MEAN CORPUSCULAR HGB CONC 34.6 g/dL (32.0-36.0); MEAN CORPUSCULAR VOLUME 100 fl (80-97); PLATELET COUNT 303 10^3/uL (150-450); RED BLOOD COUNT 2.29 10^6/uL (3.72-5.28); RED CELL DISTRIBUTION WIDTH 17.5 % (11.5-14.0); WHITE BLOOD COUNT 6.1 10^3/uL (4.0-10.5)
[2019-01-25 10:50] LABS: HEMOGLOBIN 7.9 g/dL (12.0-15.5)
[2019-01-25 10:58] LABS: ALANINE AMINOTRANSFERASE 22 U/L (9-52); ALBUMIN 4.3 g/dL (3.5-5.0); ALKALINE PHOSPHATASE 85 U/L (38-126); ANION GAP 6 (5-19); ASPARTATE AMINO TRANSFERASE 29 U/L (14-36); BILIRUBIN,DIRECT 0.2 mg/dL (0.0-0.4); BILIRUBIN,TOTAL 2.2 mg/dL (0.2-1.3); BLOOD UREA NITROGEN 11 mg/dL (7-20); CALCIUM 9.5 mg/dL (8.4-10.2); CARBON DIOXIDE 32 mmol/L (22-30); CHLORIDE 101 mmol/L (98-107); CHOLESTEROL 135.34 mg/dL (0-200); GLUCOSE 100 mg/dL (75-110); POTASSIUM 4.1 mmol/L (3.6-5.0); SODIUM 139.1 mmol/L (137-145); TOTAL PROTEIN 7.9 g/dL (6.3-8.2); TRIGLYCERIDES 73 mg/dL (<150)
[2019-01-25 11:09] LABS: DIRECT LDL 70 mg/dL (<100)
[2019-01-25 11:13] LABS: FREE T4 (FREE THYROXINE) 1.05 ng/dL (0.78-2.19)
[2019-01-25 11:26] LABS: ABSOLUTE LYMPHOCYTES# (MANUAL) 1.9 10^3/uL (0.5-4.7); ABSOLUTE MONOCYTES # (MANUAL) 0.2 10^3/uL (0.1-1.4); ABSOLUTE NEUTROPHILS# (MANUAL) 3.6 10^3/uL (1.7-8.2); BASOPHILS % (MANUAL) 0 % (0-2); EOSINOPHILS % (MANUAL) 6 % (0-6); LYMPHOCYTES % (MANUAL) 31 % (13-45); MONOCYTES % (MANUAL) 4 % (3-13); NUCLEATED RED BLOOD CELLS 3 /100 WBC (0); SEGMENTED NEUTROPHILS % (MAN) 59 % (42-78); TOTAL CELLS COUNTED 100
[2019-01-25 11:27] LABS: THYROID STIMULATING HORMONE 1.63 uIU/mL (0.47-4.68)
[2019-01-25 11:29] LABS: PLATELET COMMENT ADEQUATE
[2019-01-25 11:30] LABS: SICKLE RED CELLS 2+
[2019-01-25 11:32] LABS: POLYCHROMASIA 1+
[2019-01-25 11:33] LABS: ANISOCYTOSIS 1+; POIKILOCYTOSIS 2+; TARGET CELLS 2+
== END ==
LOC: LAB 09:47
PROVIDERS: ATTEND Internal Medicine
DX: Z00.00 Encounter for general adult medical examination without abnormal findings (principal); I10 Essential (primary) hypertension; E66.9 Obesity, unspecified; Z13.220 Encounter for screening for lipoid disorders
CPT/HCPCS: 36415; 80053; 80061; 84439; 84443; 85025

== ENCOUNTER 2019-02-23 14:29 | Emergency (ER) | payer SELFPAY ==
--- NOTE | 2019-02-23 14:47 | ER Document Report ---
ED Medical Screen (RME) - General Chief Complaint: Loss of Vision Stated Complaint: EYE PROBLEM Time Seen by Provider: 02/23/19 14:40 Primary Care Provider: PANKAJ CARDONA MD [Primary Care Provider] - Follow up as needed TRAVEL OUTSIDE OF THE [place] IN LAST 30 DAYS: No - HPI Notes: 02/23/19 14:45 Patient is a 58-year-old female with a history of sickle cell who presents the emergency department complaining of decrease in vision to her left eye that occurred somewhat suddenly yesterday. Patient states that she saw "blood" in her eye and every night again when she moves her eyes she will see blood/floaters across her vision. Patient states that she has had laser eye procedures performed for retinopathy in the past with report of retinal detachment in her right eye. She has not noticed any redness, discharge, or pain otherwise. Denies RHODES, fever, neck pain, URI, CP, SOB, Abd pain, or rash. I have treated and performed a rapid initial assessment of this patient. A comprehensive ED assessment and evaluation of the patient, analysis of test results and completion of medical decision making process will be conducted by additional ED providers. PHYSICAL EXAMINATION: GENERAL: Well-appearing, well-nourished and in no acute distress. A&Ox4. Answers questions appropriately. Eyes: PERRLA, EOMI. no injection or discharge to conjunctiva. LUNGS: Breath sounds clear to auscultation bilaterally and equal. No wheezes rales or rhonchi. HEART: Regular rate and rhythm without murmurs, rubs, gallops. Extremities: No cyanosis, clubbing, or edema b/l. NEUROLOGICAL: Normal speech, normal gait. Cranial nerves grossly intact PSYCH: Normal mood, normal affect. - Related Data Allergies/Adverse Reactions: Shellfish * [Shellfish] Allergy (Unknown, Verified 02/23/19 14:32) ketorolac [Ketorolac] Allergy (Verified 02/23/19 14:32) morphine Allergy (Verified 02/23/19 14:32) Hives Past Medical History - Past Medical History Cardiac Medical History: Reports: Hx Heart Murmur Pulmonary Medical History: Denies: Hx Tuberculosis Renal/ Medical History: Denies: Hx Peritoneal Dialysis Psychiatric Medical History: Denies: Hx Depression Past Surgical History: Reports: Hx Orthopedic Surgery - L hip replacement. Denies: Hx Pacemaker - Immunizations Hx Diphtheria, Pertussis, Tetanus Vaccination: Yes Doctor's Discharge - Discharge Referrals: PANKAJ CARDONA MD [Primary Care Provider] - Follow up as needed
--- NOTE | 2019-02-23 15:24 | ER Document Report ---
ED Eye Complaint - General Chief Complaint: Loss of Vision Stated Complaint: LOSS OF VISION Time Seen by Provider: 02/23/19 14:40 Primary Care Provider: CHELLE ALVARADO MD [ACTIVE STAFF] - 02/25/19 9:00 am Notes: This is a pleasant 58-year-old female patient to the emergency department with a chief complaint of vision loss in the left eye. Patient has long-standing history of sickle cell disease. Followed by local telemarketing sales representative as well as local global sourcing manager. Patient has had vitreous rigidity in the past. Her local telemarketing sales representative has seen her in the past. Patient began to notice some increased amount of floaters in the left eye yesterday. Woke up this morning and could see light but nothing else. Denies any pain in the eye at this time. Denies any other complaints. Denies any severe abdominal pain, chest pain, joint pain. No other sickle cell symptoms at this time. TRAVEL OUTSIDE OF THE [place] IN LAST 30 DAYS: No - HPI Onset: Yesterday Eye location: Left Occurred at: Home Quality of pain: No pain Severity: Moderate Pain Level: 0 - Related Data Allergies/Adverse Reactions: Shellfish * [Shellfish] Allergy (Unknown, Verified 02/23/19 14:32) ketorolac [Ketorolac] Allergy (Verified 02/23/19 14:32) morphine Allergy (Verified 02/23/19 14:32) Hives Past Medical History - General Information source: Patient - Social History Smoking Status: Never Smoker Frequency of alcohol use: None Drug Abuse: None Lives with: Spouse/Significant other Family History: Reviewed & Not Pertinent Patient has suicidal ideation: No Patient has homicidal ideation: No - Past Medical History Cardiac Medical History: Reports: Hx Heart Murmur Pulmonary Medical History: Denies: Hx Tuberculosis Renal/ Medical History: Denies: Hx Peritoneal Dialysis Psychiatric Medical History: Denies: Hx Depression Past Surgical History: Reports: Hx Orthopedic Surgery - L hip replacement. Denies: Hx Pacemaker - Immunizations Hx Diphtheria, Pertussis, Tetanus Vaccination: Yes Hx Pneumococcal Vaccination: 11/20/09 Review of Systems - Review of Systems Notes: Constitutional: denies: Chills, Diaphoresis, Fever, Malaise, Weakness EENT: denies: Eye discharge, Blurred vision, Tearing, Double vision, Nose congestion, Nose discharge, Throat swelling, Mouth pain. Does complain of left eye vision loss. Cardiovascular: denies: Palpitations, Heart racing, Orthopnea, Dyspnea, Chest pain Respiratory: denies: Cough, Hurts to breathe, Wheezing, Shortness of breath Gastrointestinal: denies: Abdominal pain, Diarrhea, Nausea, Vomiting, Black stools, bright red blood in stool Genitourinary: denies: Burning, Dysuria, Discharge, Frequency, Flank pain, Hematuria Musculoskeletal: denies: Joint pain, Joint swelling, Muscle pain, Muscle stiffness, back pain Hematologic/Lymphatic: denies: Anemia, Easy bleeding, Easy bruising, Blood clots. History of sickle cell disease. Neurological/Psychological: denies: Confusion, Dementia, Depression, Loss of consciousness Skin: No lesions, no masses, no skin breakdown, no abscesses Physical Exam - Vital signs Vitals: Temp Pulse Resp BP Pulse Ox 98.0 F 80 16 127/64 H 98 02/23/19 14:45 02/23/19 14:45 02/23/19 14:45 02/23/19 14:45 02/23/19 14:45 Interpretation: Normal - General General appearance: Appears well, Alert - HEENT Head: Normocephalic, Atraumatic Eyes: Normal Pupils: PERRL Notes: The right eye appears unremarkable. Funduscopic exam unremarkable. The left eye demonstrates inability to see the retina. There is definite darkness they are with no significant light reflex. Unable to visualize blood vessels. - Respiratory Respiratory status: No respiratory distress Chest status: Nontender Breath sounds: Normal Chest palpation: Normal - Cardiovascular Rhythm: Regular Heart sounds: Normal auscultation Murmur: No - Abdominal Inspection: Normal Distension: No distension Bowel sounds: Normal Tenderness: Nontender Organomegaly: No organomegaly - Back Back: Normal, Nontender - Extremities General upper extremity: Normal inspection, Nontender, Normal color, Normal ROM, Normal temperature General lower extremity: Normal inspection, Nontender, Normal color, Normal ROM, Normal temperature, Normal weight bearing. No: Kathy's sign - Neurological Neuro grossly intact: Yes Cognition: Normal Orientation: AAOx4 [place] Coma Scale Eye Opening: Spontaneous [place] Coma Scale Verbal: Oriented [place] Coma Scale Motor: Obeys Commands [place] Coma Scale Total: 15 Speech: Normal Motor strength normal: LUE, RUE, LLE, RLE Sensory: Normal - Psychological Associated symptoms: Normal affect, Normal mood - Skin Skin Temperature: Warm Skin Moisture: Dry Skin Color: Normal Course - Re-evaluation Re-evalutation: 02/23/19 18:58 Tonometry performed in both eyes. Intraocular pressure averaged at 12 bilaterally. 02/23/19 18:[address] Alvarado with ophthalmology. He knows the patient. At this time she likely suffers from some hemorrhage in the eye. Patient has no pain. This has happened to her several times. Had recent blood work 2 days ago which was reportedly at baseline and slightly improved so not concerned about needing to repeat blood work. I do not feel that an MRI or a CT scan is going to be helpful. Dr. Alvarado wants to see her in the clinic on Monday. We will keep her head elevated tonight to see if this will help. Currently I do believe patient is stable for discharge. - Vital Signs Vital signs: Temp Pulse Resp BP Pulse Ox 98.0 F 76 16 116/44 L 97 02/23/19 14:45 02/23/19 16:05 02/23/19 14:45 02/23/19 16:05 02/23/19 16:05 Critical Care Note - Critical Care Note Total time excluding time spent on procedures (mins): 45 Comments: Acute vision loss, consultation with specialist, coordination of outpatient care. Discharge - Discharge Clinical Impression: Vitreous hemorrhage, left eye Condition: Good Disposition: HOME, SELF-CARE Additional Instructions: It is highly likely that you have a hemorrhage in the left eye. It will be very important that you follow-up with the telemarketing sales representative. He is expecting you to go to his office on Monday at 9 AM. In the event that you develop severe pain, vision loss in the right eye, any worsening symptoms or concerns and please return immediately for recheck within the next 24-48 hours. Please remain upright as much as possible as this can help with the vision loss. Do not take any anti-inflammatory medications or anything that can cause your blood to be more thin such as aspirin, ibuprofen, Aleve. Referrals: CHELLE ALVARADO MD [ACTIVE STAFF] - 02/25/19 9:00 am
[2019-02-23] MEDS ORDERED: TETRACAINE HCL 0.5% OPH SOLN 4 ML OU ONE (15:39)
[2019-02-23 16:07] VITALS: BP 116/44
== END 2019-02-23 16:18 | disposition home or self-care (01) ==
LOC: ER 14:29
DX: H43.12 Vitreous hemorrhage, left eye (principal); H54.62 Unqualified visual loss, left eye, normal vision right eye; Z96.642 Presence of left artificial hip joint
CPT/HCPCS: 99285; J3490

== ENCOUNTER 2019-04-13 03:53 | Emergency (ER) | payer SELFPAY ==
[2019-04-13] MEDS ORDERED: FENTANYL CITRATE INJ/PF 100 MCG/2 ML AMPUL IV ONE (06:33)
[2019-04-13 06:39] LABS: ABSOLUTE RETICS # 0.141 10^6/uL (0.028-0.122); HEMOGLOBIN 8.6 g/dL (12.0-15.5); MEAN CORPUSCULAR HEMOGLOBIN 34.9 pg (27.0-33.4); MEAN CORPUSCULAR HGB CONC 34.4 g/dL (32.0-36.0); MEAN CORPUSCULAR VOLUME 101 fl (80-97); PLATELET COUNT 307 10^3/uL (150-450); RED BLOOD COUNT 2.46 10^6/uL (3.72-5.28); RED CELL DISTRIBUTION WIDTH 16.8 % (11.5-14.0); RETICULOCYTE COUNT (AUTO) 5.72 % (0.66-2.85); WHITE BLOOD COUNT 6.1 10^3/uL (4.0-10.5)
[2019-04-13 06:53] LABS: ALANINE AMINOTRANSFERASE 19 U/L (9-52); ALBUMIN 4.2 g/dL (3.5-5.0); ALKALINE PHOSPHATASE 82 U/L (38-126); ANION GAP 11 (5-19); ASPARTATE AMINO TRANSFERASE 31 U/L (14-36); BILIRUBIN,DIRECT 0.5 mg/dL (0.0-0.4); BILIRUBIN,TOTAL 2.6 mg/dL (0.2-1.3); BLOOD UREA NITROGEN 20 mg/dL (7-20); CALCIUM 9.3 mg/dL (8.4-10.2); CARBON DIOXIDE 25 mmol/L (22-30); CHLORIDE 105 mmol/L (98-107); GLUCOSE 127 mg/dL (75-110); POTASSIUM 4.3 mmol/L (3.6-5.0); SODIUM 141.3 mmol/L (137-145); TOTAL PROTEIN 7.7 g/dL (6.3-8.2)
[2019-04-13] MEDS: NORMAL SALINE 1000 ML 1,000 ML IV PRN ×2 (06:55→08:03)
[2019-04-13 07:01] LABS: ABSOLUTE LYMPHOCYTES# (MANUAL) 1.2 10^3/uL (0.5-4.7); ABSOLUTE MONOCYTES # (MANUAL) 0.5 10^3/uL (0.1-1.4); ABSOLUTE NEUTROPHILS# (MANUAL) 4.1 10^3/uL (1.7-8.2); BAND NEUTROPHILS % (MANUAL) 1 % (3-5); BASOPHILS % (MANUAL) 1 % (0-2); EOSINOPHILS % (MANUAL) 3 % (0-6); LYMPHOCYTES % (MANUAL) 20 % (13-45); MONOCYTES % (MANUAL) 9 % (3-13); NUCLEATED RED BLOOD CELLS 3 /100 WBC (0); SEGMENTED NEUTROPHILS % (MAN) 66 % (42-78); TOTAL CELLS COUNTED 100
[2019-04-13 07:05] LABS: ANISOCYTOSIS 1+; HOWELL-JOLLY BODIES PRESENT; OVALOCYTES SLIGHT; PLATELET COMMENT ADEQUATE; POIKILOCYTOSIS 1+; POLYCHROMASIA 1+; SICKLE RED CELLS SLIGHT; TARGET CELLS 1+
--- NOTE | 2019-04-13 07:20 | ER Document Report ---
ED General - General Chief Complaint: Sickle Cell Crisis Stated Complaint: TORSO PAIN Time Seen by Provider: 04/13/19 06:23 Primary Care Provider: PANKAJ CARDONA MD [Primary Care Provider] - Follow up as needed Mode of Arrival: Ambulatory Information source: Patient, [facility] Records Notes: 58-year-old female with sickle cell disease presents with complaint of low back pain that has been ongoing for 1 day. Patient describes the pain as aching, throbbing and without radiation. She states this is typical of her sickle cell pain flare. She denies any fever, chills, nausea or vomiting, cough, shortness of breath, abdominal pain, dysuria, hematuria. TRAVEL OUTSIDE OF THE [place] IN LAST 30 DAYS: No - HPI Onset: Other Onset/Duration: Gradual, Persistent Quality of pain: Achy, Throbbing Severity: Moderate Pain Level: 2 Associated symptoms: Other - Back pain. denies: Chest pain, Chills, Nonproductive cough, Productive cough, Fever, Nausea, Vomiting, Shortness of breath Exacerbated by: Denies Relieved by: Denies Similar symptoms previously: Yes Recently seen / treated by doctor: No - Related Data Allergies/Adverse Reactions: Shellfish * [Shellfish] Allergy (Unknown, Verified 02/23/19 14:32) ketorolac [Ketorolac] Allergy (Verified 02/23/19 14:32) morphine Allergy (Verified 02/23/19 14:32) Hives Past Medical History - General Information source: Patient - Social History Smoking Status: Never Smoker Frequency of alcohol use: None Drug Abuse: None Lives with: Family Family History: Reviewed & Not Pertinent Patient has suicidal ideation: No Patient has homicidal ideation: No - Past Medical History Cardiac Medical History: Reports: Hx Heart Murmur Pulmonary Medical History: Denies: Hx Tuberculosis Renal/ Medical History: Denies: Hx Peritoneal Dialysis Psychiatric Medical History: Denies: Hx Depression Past Surgical History: Reports: Hx Orthopedic Surgery - L hip replacement. Denies: Hx Pacemaker - Immunizations Hx Diphtheria, Pertussis, Tetanus Vaccination: Yes Hx Pneumococcal Vaccination: 11/20/09 Review of Systems - Review of Systems Notes: REVIEW OF SYSTEMS: CONSTITUTIONAL : Denies fever, chills, or sweats. Denies recent illness. Denies weight loss, recent hospitalizations. EENT: Denies visual changes, eye pain. Denies sore throat, oral lesions, difficulty swallowing. CARDIOVASCULAR: Denies chest pain. Denies palpitations. Denies lower extremity edema. RESPIRATORY: Denies cough. Denies shortness of breath, wheezing. GASTROINTESTINAL: Denies abdominal pain or distention. Denies nausea, vomiting, or diarrhea. Denies blood in vomitus, stools, or per rectum. Denies black, tarry stools. Denies constipation. GENITOURINARY: Denies difficulty urinating, painful urination, frequency, blood in urine, or vaginal discharge. MUSCULOSKELETAL: Denies neck pain or stiffness. Denies joint pain or swelling. SKIN: Denies rash, lesions or sores. HEMATOLOGIC : Denies easy bruising or bleeding. LYMPHATIC: Denies swollen glands. NEUROLOGICAL: Denies confusion or altered mental status. Denies loss of consciousness. Denies dizziness or lightheadedness. Denies headache. Denies weakness or paralysis. Denies problems difficulty with ambulation, slurred speech. Denies sensory loss, numbness, or tingling. Denies seizures. PSYCHIATRIC: Denies anxiety or stress. Denies depression, suicidal ideation, or homicidal ideation. Denies visual or auditory hallucinations. Physical Exam - Vital signs Vitals: Temp Pulse Resp BP Pulse Ox 98.1 F 67 22 H 115/50 L 99 04/13/19 04:07 04/13/19 04:07 04/13/19 04:07 04/13/19 04:07 04/13/19 04:07 - Notes Notes: PHYSICAL EXAMINATION: GENERAL: Well-appearing, well-nourished and in no acute distress. HEAD: Atraumatic, normocephalic. EYES: Pupils equal round and reactive to light, extraocular movements intact, conjunctiva are normal. ENT: Nares patent, oropharynx clear without exudates. Moist mucous membranes. NECK: Normal range of motion, supple without lymphadenopathy LUNGS: Breath sounds clear to auscultation bilaterally and equal. No wheezes rales or rhonchi. HEART: Regular rate and rhythm without murmurs ABDOMEN: Soft, nontender, nondistended abdomen. No guarding, no rebound. No masses appreciated. Female : deferred Musculoskeletal: Normal range of motion, no pitting or edema. No cyanosis. NEUROLOGICAL: Cranial nerves grossly intact. Normal speech, normal gait. Normal sensory, motor exams PSYCH: Normal mood, normal affect. SKIN: Warm, Dry, normal turgor, no rashes or lesions noted. Course - Re-evaluation Re-evalutation: 04/13/19 07:19 Laboratory 04/13/19 04/13/19 06:25 06:25 WBC 6.1 RBC 2.46 L Hgb 8.6 L Hct 25.0 L MCV 101 H MCH 34.9 H MCHC 34.4 RDW 16.8 H Plt Count 307 Total Counted 100 Seg Neutrophils % Not Reportable Seg Neuts % (Manual) 66 Band Neutrophils % 1 L Lymphocytes % Not Reportable Lymphocytes % (Manual) 20 Monocytes % Not Reportable Monocytes % (Manual) 9 Eosinophils % Not Reportable Eosinophils % (Manual) 3 Basophils % Not Reportable Basophils % (Manual) 1 Absolute Neutrophils Not Reportable Abs Neuts (Manual) 4.1 Absolute Lymphocytes Not Reportable Abs Lymphs (Manual) 1.2 Absolute Monocytes Not Reportable Abs Monocytes (Manual) 0.5 Absolute Eosinophils Not Reportable Absolute Eos (Manual) 0.2 Absolute Basophils Not Reportable Abs Basophils (Manual) 0.1 Nucleated RBCs 3 Platelet Comment ADEQUATE Polychromasia 1+ Poikilocytosis 1+ Anisocytosis 1+ Macrocytosis 1+ Sickle Cells SLIGHT Target Cells 1+ Ovalocytes SLIGHT Lane-[place] Bodies PRESENT Retic Count (auto) 5.72 H Absolute Retic 0.141 H Sodium 141.3 Potassium 4.3 Chloride 105 Carbon Dioxide 25 Anion Gap 11 BUN 20 Creatinine 0.63 Est GFR ( Amer) > 60 Est GFR (Non-Af Amer) > 60 Glucose 127 H Calcium 9.3 Total Bilirubin 2.6 H Direct Bilirubin 0.5 H Neonat Total Bilirubin Not Reportable Neonat Direct Bilirubin Not Reportable Neonat Indirect Bili Not Reportable AST 31 ALT 19 Alkaline Phosphatase 82 Total Protein 7.7 Albumin 4.2 Temp Pulse Resp BP Pulse Ox 98.1 F 67 22 H 115/50 L 99 04/13/19 04:07 04/13/19 04:07 04/13/19 04:07 04/13/19 04:07 04/13/19 04:07 04/13/19 07:48 Patient reevaluated after receiving fentanyl. She states "it took the edge off but I feel sick". 04/13/19 08:52 Patient reevaluated again after receiving Benadryl. She is sleeping comfortably. She reports that the pain has improved nausea has resolved. Patient sees Dr. Franco. She states she has no home pain medication. Presentation is most consistent with an uncomplicated sickle cell pain crisis. Patient has no evidence of an aplastic crisis on labs. Chest x-ray and vitals are not consistent with acute chest syndrome. Vitals have remained within normal limits here in the emergency department. Patient's pain has been able to be controlled using IV analgesia. The patient is agreeable to discharge home at this time. I recommended that they follow closely with their primary farm specialist. Return precautions have been reviewed and discussed and patient has verbalized indications to return to the emergency department. - Vital Signs Vital signs: Temp Pulse Resp BP Pulse Ox 98.1 F 67 22 H 115/50 L 99 04/13/19 04:07 04/13/19 04:07 04/13/19 04:07 04/13/19 04:07 04/13/19 04:07 - Laboratory Result Diagrams: 04/13/19 06:25 04/13/19 06:25 Laboratory results interpreted by me: 04/13/19 04/13/19 06:25 06:25 RBC 2.46 L Hgb 8.6 L Hct 25.0 L MCV 101 H MCH 34.9 H RDW 16.8 H Band Neutrophils % 1 L Retic Count (auto) 5.72 H Absolute Retic 0.141 H Glucose 127 H Total Bilirubin 2.6 H Direct Bilirubin 0.5 H Discharge - Discharge Clinical Impression: Sickle cell pain crisis Condition: Good Disposition: HOME, SELF-CARE Instructions: Sickle Cell Crisis ([facility]) Additional Instructions: You were seen today for sickle cell pain crisis. Please follow-up with your farm specialist. Returning to the ED if you have worsening pain, fever greater than 100.4, shortness of breath, persistent vomiting, or any other symptoms that are concerning to you. Prescriptions: Morphine Sulfate [Morphine Ir 15 Mg Tablet] 15 mg PO Q8H #12 tablet Ondansetron [Zofran Odt 4 mg Tablet] 1 - 2 tab PO Q4H PRN #15 tab.rapdis PRN Reason: For Nausea/Vomiting Referrals: PANKAJ CARDONA MD [Primary Care Provider] - Follow up as needed
[2019-04-13] MEDS ORDERED: HYDROMORPHONE HCL INJ/PF 2 MG/ML AMPULE IV ONE ×2 (07:48→09:16)
[2019-04-13] MEDS ORDERED: ONDANSETRON HCL INJ/PF 4 MG/2 ML SDV IV ONE (07:48)
--- NOTE | 2019-04-13 10:06 | RADIOLOGY REPORT (SQ) ---
EXAM DESCRIPTION: CHEST 2 VIEWS COMPLETED DATE/TIME: 04/13/2019 9:54 am REASON FOR STUDY: pain COMPARISON: 09/22/2017 EXAM PARAMETERS: NUMBER OF VIEWS: two views TECHNIQUE: Digital Frontal and Lateral radiographic views of the chest acquired. RADIATION DOSE: NA LIMITATIONS: none FINDINGS: LUNGS AND PLEURA: Chronic interstitial changes. Left basilar scarring. MEDIASTINUM AND HILAR STRUCTURES: No masses or contour abnormalities. HEART AND VASCULAR STRUCTURES: Stable heart size. No evidence for failure. BONES: No acute findings. HARDWARE: None in the chest. OTHER: No other significant finding. IMPRESSION: NO ACUTE RADIOGRAPHIC FINDING IN THE CHEST. TECHNICAL DOCUMENTATION: JOB ID: [id number] [employer]- All Rights Reserved Reading location - IP/workstation name: [email or web address]
[2019-04-13 11:34] VITALS: BP 118/56
--- NOTE | 2019-04-13 12:58 | PDOC CONSULTATION ---
Consultation Consult Date: 04/13/19 Provider Consulted: MAYNOR MAX History of Present Illness Admission Date/PCP: PANKAJ CARDONA Patient complains of: sickle cell pain History of Present Illness: RONALDO GRANT is a 58 year old female with a past medical history of sickle cell pain, vitamin D deficiency, and anemia of chronic disease followed by Dr. Cardona and Dr. Franco who presented to the emergency department today with a complaint of sudden onset of sickle cell pain at 230 this morning that did not respond to Motrin and 1 tab of [place] (reportedly prescribed in 2012). She reports that the pain first started in her lower back, then migrated to her left arm. She also complains of abdominal pain that she reports is chronic; has been told to follow up with GI for "upper and lower studies." Evaluation by the ED provider revealed baseline anemia (Hgb 8.6), retic count 5.72, unremarkable chemistry, benign chest xray, and normal vital signs. The ED provider provided 2 L NS bolus and analgesic medications with plans to d/c patient to home with Morphine IR. Patient requested to be considered for admission and so hospitalist service was consulted. Past Medical History Cardiac Medical History: Reports: Heart Murmur Pulmonary Medical History: Reports: None EENT Medical History: Reports: None Neurological Medical History: Reports: None Endocrine Medical History: Reports: None Renal/ Medical History: Reports: None Malignancy Medical History: Reports: None GI Medical History: Reports: None Skin Medical History: Reports: None Psychiatric Medical History: Denies: Depression Traumatic Medical History: Reports: None Hematology: Reports: Sickle Cell Disease Infectious Medical History: Reports: None Past Surgical History Past Surgical History: Reports: Orthopedic Surgery - L hip replacement Denies: Pacemaker Social History Information Source: Patient Lives with: Family Smoking Status: Never Smoker Frequency of Alcohol Use: Rare Hx Recreational Drug Use: No Hx Prescription Drug Abuse: No - Advance Directive Resuscitation Status: Full Code Family History Family History: Reviewed & Not Pertinent Parental Family History Reviewed: Yes Children Family History Reviewed: Yes Sibling(s) Family History Reviewed.: Yes Medication/Allergy Home Medications: Hydroxyurea [Hydrea 500 mg Capsule] 1,000 mg PO DAILY 09/04/12 Folic Acid 1 mg PO DAILY #30 tablet 08/08/14 Ibuprofen [Motrin 800 mg Tablet] 800 mg PO Q6HP PRN #60 tablet 09/19/14 Hydrocodone/Acetaminophen [Vicodin Es 7.5-300 mg Tablet] 1 tab PO Q6HP PRN 02/06/15 Cyanocobalamin (Vitamin B-12) [Vitamin B-12] 1,000 mcg PO DAILY 01/01/19 Ondansetron HCl [Zofran 4 mg Tablet] 1 - 2 tab PO Q4H PRN #10 tablet 01/01/19 Oxycodone HCl [Oxy-Ir 5 mg Tablet] 5 mg PO Q6HP PRN #20 tablet 01/01/19 Morphine Sulfate [Morphine Ir 15 Mg Tablet] 15 mg PO Q8H #12 tablet 04/13/19 Ondansetron [Zofran Odt 4 mg Tablet] 1 - 2 tab PO Q4H PRN #15 tab.rapdis 04/13/19 Allergies/Adverse Reactions: Shellfish * [Shellfish] Allergy (Unknown, Verified 02/23/19 14:32) ketorolac [Ketorolac] Allergy (Verified 02/23/19 14:32) morphine Allergy (Verified 02/23/19 14:32) Hives Review of Systems Constitutional: ABSENT: chills, fever(s), headache(s), weight gain, weight loss Eyes: ABSENT: visual disturbances Ears: ABSENT: hearing changes Cardiovascular: ABSENT: chest pain, dyspnea on exertion, edema, orthropnea, palpitations Respiratory: ABSENT: cough, hemoptysis Gastrointestinal: ABSENT: abdominal pain, constipation, diarrhea, hematemesis, hematochezia, nausea, vomiting Genitourinary: ABSENT: dysuria, hematuria Musculoskeletal: PRESENT: as per HPI. ABSENT: joint swelling Integumentary: ABSENT: rash, wounds Neurological: ABSENT: abnormal gait, abnormal speech, confusion, dizziness, fo rudy weakness, syncope Psychiatric: ABSENT: anxiety, depression, homidical ideation, suicidal ideation Endocrine: ABSENT: cold intolerance, heat intolerance, polydipsia, polyuria Hematologic/Lymphatic: PRESENT: as per HPI. ABSENT: easy bleeding, easy bruising Physical Exam Vital Signs: Temp Pulse Resp BP Pulse Ox 98.1 F 67 23 H 118/56 L 92 04/13/19 04:07 04/13/19 04:07 04/13/19 09:00 04/13/19 11:01 04/13/19 11:01 Intake & Output 04/12/19 04/13/19 04/14/19 06:59 06:59 06:59 Intake Total 1999 Balance 1999 Weight 79.8 kg General appearance: PRESENT: no acute distress, well-developed, well-nourished - overweight Head exam: PRESENT: atraumatic, normocephalic Eye exam: PRESENT: conjunctiva pink, EOMI, PERRLA. ABSENT: scleral icterus Ear exam: PRESENT: normal external ear exam Mouth exam: PRESENT: moist, tongue midline Neck exam: ABSENT: carotid bruit, JVD, lymphadenopathy, thyromegaly Respiratory exam: PRESENT: clear to auscultation ryley, symmetrical, unlabored. ABSENT: rales, rhonchi, wheezes Cardiovascular exam: PRESENT: RRR. ABSENT: diastolic murmur, rubs, systolic murmur Pulses: PRESENT: normal dorsalis pedis pul Vascular exam: PRESENT: normal capillary refill GI/Abdominal exam: PRESENT: normal bowel sounds, soft. ABSENT: distended, guarding, mass, organolmegaly, rebound, tenderness Rectal exam: PRESENT: deferred Extremities exam: PRESENT: full ROM. ABSENT: calf tenderness, clubbing, pedal edema Neurological exam: PRESENT: alert, awake, oriented to person, oriented to place, oriented to time, oriented to situation, CN II-XII grossly intact. ABSENT: motor sensory deficit Psychiatric exam: PRESENT: appropriate affect, normal mood. ABSENT: homicidal ideation, suicidal ideation Skin exam: PRESENT: dry, intact, warm. ABSENT: cyanosis, rash Results Laboratory Results: 04/13/19 06:25 04/13/19 06:25 04/13/19 04/13/19 06:25 06:25 WBC 6.1 RBC 2.46 L Hgb 8.6 L Hct 25.0 L MCV 101 H MCH 34.9 H MCHC 34.4 RDW 16.8 H Plt Count 307 Seg Neutrophils % Not Reportable Lymphocytes % Not Reportable Monocytes % Not Reportable Eosinophils % Not Reportable Basophils % Not Reportable Absolute Neutrophils Not Reportable Absolute Lymphocytes Not Reportable Absolute Monocytes Not Reportable Absolute Eosinophils Not Reportable Absolute Basophils Not Reportable Retic Count (auto) 5.72 H Absolute Retic 0.141 H Sodium 141.3 Potassium 4.3 Chloride 105 Carbon Dioxide 25 Anion Gap 11 BUN 20 Creatinine 0.63 Est GFR ( Amer) > 60 Est GFR (Non-Af Amer) > 60 Glucose 127 H Calcium 9.3 Total Bilirubin 2.6 H AST 31 ALT 19 Alkaline Phosphatase 82 Total Protein 7.7 Albumin 4.2 Impressions: Chest X-Ray 04/13/19 09:16 IMPRESSION: NO ACUTE RADIOGRAPHIC FINDING IN THE CHEST. Assessment and Plan - Diagnosis (1) Sickle cell pain crisis Is this a current diagnosis for this admission?: Yes Plan: Patient presented with report of sickle cell crisis pain that did not respond to [id number] Motrin and 1 tab of [place] (prescribed in 2012 per patient). Followed by Dr. Franco. Reports she takes hydroxyurea 1000 mg twice daily and does not require refill. The ED provider provided 2 L NS bolus and IV Dilaudid for pain. Agree with the ED providers recommendations for outpatient management at this time; Dr. Max states that she will provide prescriptions for IR morphine and Zofran. The patient is advised to avoid exacerbating activity (avoid heat exposure, remain hydrated, take medications as prescribed). She is also encouraged to return to the emergency department if she finds that her pain is not controlled with the prescriptions provided by the ED provider. She is instructed to follow-up with her primary care provider within [address] to contact [address] Franco's office on Monday to schedule follow-up appointment. (2) Anemia of chronic disease Is this a current diagnosis for this admission?: Yes Plan: Stable. Hemoglobin 8.6; at baseline. No evidence of bleeding at this time. Patient is hemodynamically stable. Continue outpatient regiment. - Time Time Spent with patient: 35 or more minutes Medications reviewed and adjusted accordingly: Yes Anticipated discharge: Home
== END 2019-04-13 11:35 | disposition home or self-care (01) ==
LOC: ER 03:53
DX: D57.00 Hb-SS disease with crisis, unspecified (principal); R10.9 Unspecified abdominal pain; M54.5 Low back pain
CPT/HCPCS: 96376; 99284; 96361; 96374; 96375; 36415; 85025; 85045; 80053; 71046; J3010; J1170; J2405; J7030

== ENCOUNTER 2019-06-29 03:40 | Emergency (ER) | payer SELFPAY ==
[2019-06-29 03:47] VITALS: BP 155/83
== END 2019-06-29 04:05 | disposition left against medical advice (07) ==
LOC: ER 03:40
DX: Z53.21 Procedure and treatment not carried out due to patient leaving prior to being seen by health care provider (principal)

== ENCOUNTER 2019-10-13 06:25 | Emergency (ER) | payer MEDICARE, MEDICAID ==
[2019-10-13] MEDS ORDERED: HYDROMORPHONE HCL INJ/PF 2 MG/ML AMPULE IV ONE ×4 (07:37→15:13)
[2019-10-13] MEDS ORDERED: NORMAL SALINE 1000 ML 1,000 ML IV ONE ×3 (07:37→10:33)
[2019-10-13] MEDS ORDERED: ONDANSETRON HCL INJ/PF 4 MG/2 ML SDV IV ONE (07:37)
--- NOTE | 2019-10-13 07:41 | ER Document Report ---
ED General Pain - General Chief Complaint: Sickle Cell Crisis Stated Complaint: SICKLE CELL PAIN Time Seen by Provider: 10/13/19 07:24 Primary Care Provider: PANKAJ CARDONA MD [Primary Care Provider] - Follow up as needed Mode of Arrival: Ambulatory Information source: Patient, [facility] Records Notes: This 5-year-old female patient with past medical history of sickle cell disease reports onset about noon yesterday of left leg, knee, and hip pain. She states she did try Motrin 800 mg without relief, did take one [place] which she reports helped some. She is complaining of severe pain at this time. She states there is no pattern to where she will get pain when she does have sickle crisis. Review of the [place] controlled substance database shows the patient has received very little pain medication over the past few years. She has only occasionally presented to the emergency room with sickle cell pain in the past few years. TRAVEL OUTSIDE OF THE [place] IN LAST 30 DAYS: No - Related Data Allergies/Adverse Reactions: Shellfish * [Shellfish] Allergy (Unknown, Verified 02/23/19 14:32) ketorolac [Ketorolac] Allergy (Verified 02/23/19 14:32) morphine Allergy (Verified 02/23/19 14:32) Hives Home Medications: norco 2 tab prn pain. ibuprofen 800 mg prn pain Past Medical History - Social History Smoking Status: Never Smoker Frequency of alcohol use: Occasional Drug Abuse: None Family History: Reviewed & Not Pertinent Patient has suicidal ideation: No Patient has homicidal ideation: No - Past Medical History Cardiac Medical History: Reports: Hx Heart Murmur Pulmonary Medical History: Denies: Hx Tuberculosis Renal/ Medical History: Denies: Hx Peritoneal Dialysis Psychiatric Medical History: Denies: Hx Depression Past Surgical History: Reports: Hx Orthopedic Surgery - L hip replacement. Denies: Hx Pacemaker - Immunizations Hx Diphtheria, Pertussis, Tetanus Vaccination: Yes Hx Pneumococcal Vaccination: 11/20/09 Physical Exam - Vital signs Vitals: Temp Pulse Resp BP Pulse Ox 97.6 F 97 22 H 122/56 L 99 10/13/19 06:32 10/13/19 06:32 10/13/19 06:32 10/13/19 06:32 10/13/19 06:32 Interpretation: Normal - General General appearance: Alert, Anxious In distress: Moderate Notes: Patient initially laying on her right side, moaning groaning complaining of severe pain in her left lower extremity. - HEENT Head: Normocephalic, Atraumatic Eyes: Normal Pupils: PERRL Neck: Normal - Respiratory Respiratory status: No respiratory distress Breath sounds: Normal - Cardiovascular Rhythm: Regular Heart sounds: Normal auscultation Murmur: Yes - Grade 2 systolic murmur heard throughout the anterior chest. - Abdominal Inspection: Normal Bowel sounds: Normal - Back Back: Normal - Extremities General upper extremity: Normal inspection General lower extremity: Other - Left lower extremity shows tenderness to the medial left knee, and the left hip region. There is also some tenderness in the left low back region. - Neurological Neuro grossly intact: Yes - Psychological Associated symptoms: Normal affect, Normal mood - Skin Skin Temperature: Warm Skin Moisture: Dry Skin Color: Normal Course - Re-evaluation Re-evalutation: 10/13/19 11:19 After the Dilaudid 2 mg IV, the patient is resting quite comfortably and states that her pain is considerably improved. 10/13/19 14:32 At this time the patient reports her pain is coming back as bad as it was before treatment. When I asked her about if she is ever able to manage pain like this at home with pain medication, she then divulged that she went to the emergency room in [place] yesterday about 5 PM, received treatment was discharged home about 9 PM. She states when the pain is this bad she always has to be admitted to the hospital. 10/13/19 16:36 Dr. Russell came to see the patient. He was able to learn from her that at noon yesterday the pain in her lower extremity started when her nephew bumped his knee against her medial knee. She neglected to tell me anything about this injury precipitating her pain, and had neglected to tell me that she had been to the emergency room in [place] yesterday evening for this pain. She is insistent that it is sickle cell pain that she can tell the difference between being bumped and having sickle cell pain. She also states she gets sickle cell pain when she does get bumped in her extremity. She reports that since the initial injury, the pain has gone up her leg and into her left hip(which is prosthetic) and into her low back now. She is refusing to go home, and states if we make her go home she will come right back. 10/13/19 17:22 I discussed the case with Dr. Russell again at 1656, he said he will call me back. I called him back at 1716 and he again states he will not admit the patient. I related this information to the patient and she is demanding to speak with Dr. Russell. I called him back at 1720 and he told me he would come down and speak to the patient. 10/13/19 18:00 Dr. Russell came down to see the patient again, he told me that he spoke with her and told her that he was not going to admit her for her current problem. I went back and spoke with patient again and explained the situation, told her the only thing that I had I could offer was a knee immobilizer for the knee injury and pain medication. She is unreceptive to that suggestion. When I exp lained that many patients take care of their sickle cell pain at home with pain medication when they do not have infections and not have chest syndrome, she states that her chest could start hurting at any time. She wants to know if there is another doctor here that could admit her, and why could she not just be kept overnight. I told her since her doctor does not admit patients now, it is only the hospitalist service that would be doing the admission and they are not willing to. 10/13/19 18:23 It has taken the mileage clerk 20 minutes to unlock the chart so I could complete the patient's discharge. She does not have compelling reasons for admission other than her unrelenting pain that seems to be related to her injury yesterday. 10/14/19 17:37 The knee immobilizer was placed on the left knee by the PCT. It provided good support for the knee joint. - Vital Signs Vital signs: Temp Pulse Resp BP Pulse Ox 98.8 F 97 20 126/56 H 99 10/13/19 18:42 10/13/19 06:32 10/13/19 18:42 10/13/19 18:42 10/13/19 18:42 - Laboratory Result Diagrams: 10/13/19 07:05 10/13/19 07:05 Laboratory results interpreted by me: 10/13/19 10/13/19 10/13/19 07:05 07:05 08:05 RBC 2.57 L Hgb 9.1 L Hct 26.3 L MCV 102 H MCH 35.4 H RDW 18.7 H Reticulocyte # 0.189 H Seg Neuts % (Manual) 79 H Retic Count (auto) 7.33 H Glucose 141 H Total Bilirubin 2.7 H Direct Bilirubin 0.5 H AST 45 H Total Protein 8.5 H Urine Blood SMALL H - Consults Dr. Russell Time consulted: 15:30 Consulted provider: will come to ER - Transfer of Care Care transferred to following provider: Dr. Sotelo Notes: 10/13/19 17:36 Pending reevaluation by the hospitalist and then disposition will be determined. Discharge - Discharge Clinical Impression: Pain of left lower extremity, History of sickle cell anemia Contusion of knee Qualifiers: Encounter type: initial encounter Laterality: left Qualified Code(s): S80.02XA - Contusion of left knee, initial encounter Condition: Stable Disposition: HOME, SELF-CARE Additional Instructions: Sickle Cell Crisis: Sickle cell disease is caused by abnormal hemoglobin. This hemoglobin can deform red blood cells into a sickle shape. These abnormal blood cells can block blood vessels. This causes the pain of sickle cell crisis. Sickle cell crisis can occur any time. But attacks are more likely with acute infection, dehydration, or altitude change. A crisis usually causes pain in the legs, back, abdomen, and chest. Sometimes the pain may ease and return later. The usual treatment is oxygen, pain medication, IV fluids, and treatment of infection. Attacks may take a couple of days to resolve. Return if the pain becomes more severe, or if there are new symptoms. Contusion: Your history and physical suggests that you suffered a contusion to your left medial knee. No injury to important structures was detected during the physician's exam. Contusions vary in the amount of pain they cause, and in the length of time required for healing. Typically, the area will remain painful to touch for two or three weeks. After the initial period of rest and cold-packs, your symptoms (together with the doctor's recommendations) will determine how rapidly you can get back to full activity. Usually this means "do what feels okay, but don't do things that hurt." If re-examination was recommended, it's important to follow up as instr ucted. Call the doctor or return any time if pain increases, if swelling becomes severe, if you develop numbness or weakness in an injured extremity, or if any other alarming symptoms occur. Try using the knee immobilizer to help stabilize her knee so it does not hurt when you are weightbearing. Take the pain medication as needed. Be sure to drink plenty of fluids and rest. Follow-up with your primary care provider tomorrow if you are not improving. RETURN TO THE EMERGENCY ROOM IF ANY NEW OR WORSENING SYMPTOMS. Prescriptions: Oxycodone HCl/Acetaminophen [Percocet 5-325 mg Tablet] 1 tab PO ASDIR PRN #12 tablet PRN Reason: Referrals: PANKAJ CARDONA MD [Primary Care Provider] - Follow up as needed
[2019-10-13 08:21] LABS: ALBUMIN 4.4 g/dL (3.5-5.0); ALKALINE PHOSPHATASE 93 U/L (38-126); ANION GAP 13 (5-19); ASPARTATE AMINO TRANSFERASE 45 U/L (14-36); BILIRUBIN,DIRECT 0.5 mg/dL (0.0-0.4); BILIRUBIN,TOTAL 2.7 mg/dL (0.2-1.3); BLOOD UREA NITROGEN 11 mg/dL (7-20); CALCIUM 9.6 mg/dL (8.4-10.2); CARBON DIOXIDE 24 mmol/L (22-30); CHLORIDE 105 mmol/L (98-107); CREATINE KINASE 40 U/L (30-135); GLUCOSE 141 mg/dL (75-110); POTASSIUM 4.2 mmol/L (3.6-5.0); TOTAL PROTEIN 8.5 g/dL (6.3-8.2)
[2019-10-13 08:27] LABS: ABSOLUTE RETICS # 0.189 10^6/uL (0.028-0.122); HEMATOCRIT 26.3 % (36.0-47.0); HEMOGLOBIN 9.1 g/dL (12.0-15.5); MEAN CORPUSCULAR HEMOGLOBIN 35.4 pg (27.0-33.4); MEAN CORPUSCULAR HGB CONC 34.6 g/dL (32.0-36.0); MEAN CORPUSCULAR VOLUME 102 fl (80-97); PLATELET COUNT 355 10^3/uL (150-450); RED BLOOD COUNT 2.57 10^6/uL (3.72-5.28); RED CELL DISTRIBUTION WIDTH 18.7 % (11.5-14.0); RETICULOCYTE COUNT (AUTO) 7.33 % (0.66-2.85); WHITE BLOOD COUNT 10.3 10^3/uL (4.0-10.5)
[2019-10-13 08:32] LABS: APPEARANCE,URINE CLEAR; BILIRUBIN,URINE NEGATIVE (NEGATIVE); COLOR,URINE YELLOW; GLUCOSE, URINE NEGATIVE (NEGATIVE); KETONES,URINE NEGATIVE (NEGATIVE); LEUKOCYTE ESTERASE,URINE NEGATIVE (NEGATIVE); NITRITE,URINE NEGATIVE (NEGATIVE); PROTEIN,URINE NEGATIVE (NEGATIVE); URINE SPECIFIC GRAVITY 1.006; UROBILINOGEN,URINE NEGATIVE mg/dL (<2.0)
[2019-10-13 08:38] LABS: ABSOLUTE LYMPHOCYTES# (MANUAL) 1.4 10^3/uL (0.5-4.7); ABSOLUTE MONOCYTES # (MANUAL) 0.6 10^3/uL (0.1-1.4); BASOPHILS % (MANUAL) 1 % (0-2); EOSINOPHILS % (MANUAL) 0 % (0-6); LYMPHOCYTES % (MANUAL) 14 % (13-45); MONOCYTES % (MANUAL) 6 % (3-13); NUCLEATED RED BLOOD CELLS 3 /100 WBC (0); SEGMENTED NEUTROPHILS % (MAN) 79 % (42-78); TOTAL CELLS COUNTED 100
[2019-10-13 08:39] LABS: ANISOCYTOSIS 2+; OVALOCYTES SLIGHT; PLATELET COMMENT ADEQUATE; PLATELET GIANT PRESENT; PLATELET LARGE PRESENT; POIKILOCYTOSIS 1+; POLYCHROMASIA SLIGHT; SICKLE RED CELLS SLIGHT; TARGET CELLS 2+
--- NOTE | 2019-10-13 17:58 | PDOC CONSULTATION ---
Consultation Consult Date: 10/13/19 Attending physician:: JEANIE HER Provider Consulted: JUAN R ROGER Consult reason:: Leg pain. ? of sickle cell pain episode History of Present Illness Admission Date/PCP: 10/13/19 16:33 PANKAJ NATALIAREY Patient complains of: left knee, left hip and back pain. History of Present Illness: RONALDO GRANT is a 59 year old female, with a history of sickle cell disease, who presents to the ER with complaints of pain in her left knee, left hip, and her lower back. Patient states that the pain started after her grandchild fell on her left leg. This occurred on Monday. She states that she subsequently went to the emergency department at [facility] and was evaluated with imaging of her joints and subsequently discharged home on 2 pills of [place] and ibuprofen. Today patient continued to experience pain in these areas subsequently came to the ER. Patient feels that the trauma triggered her sickle cell pain episode. Hospitalist service was subsequently consulted for evaluation for admission for sickle cell acute pain episode. Patient denies any chest pain, shortness of breath, fatigue. Patient initially denied abdominal pain but now states that he feels like her "ovaries hurt". Patient denies any dizziness or lightheadedness. Patient was able to walk into a car to be brought to the hospital. Past Medical History Past Medical History: Patient states that she only has sickle cell disease. She denies any history of heart disease, hypertension, diabetes mellitus, lung disease/COPD/asthma, stroke. Hematology: Reports: Sickle Cell Disease Past Surgical History Past Surgical History: Reports: Orthopedic Surgery - L hip replacement Social History Information Source: Patient Lives with: Family Smoking Status: Never Smoker Frequency of Alcohol Use: Rare Hx Recreational Drug Use: No Hx Prescription Drug Abuse: No Family History Family History: DM, Hypertension Parental Family History Reviewed: Yes Children Family History Reviewed: NA Sibling(s) Family History Reviewed.: Yes Medication/Allergy Allergies/Adverse Reactions: Shellfish * [Shellfish] Allergy (Unknown, Verified 02/23/19 14:32) ketorolac [Ketorolac] Allergy (Verified 02/23/19 14:32) morphine Allergy (Verified 02/23/19 14:32) Hives Review of Systems Constitutional: ABSENT: chills, fever(s) Eyes: ABSENT: visual disturbances Nose, Mouth, and Throat: ABSENT: vertigo Cardiovascular: ABSENT: chest pain Respiratory: ABSENT: dyspnea Gastrointestinal: ABSENT: nausea, vomiting Musculoskeletal: PRESENT: back pain Integumentary: ABSENT: wounds Neurological: ABSENT: dizziness, frequent falls Hematologic/Lymphatic: ABSENT: easy bruising Physical Exam Vital Signs: Temp Pulse Resp BP Pulse Ox 98.3 F 97 88 H 111/46 L 100 10/13/19 17:01 10/13/19 06:32 10/13/19 15:01 10/13/19 17:01 10/13/19 17:01 Intake & Output 10/12/19 10/13/19 10/14/19 06:59 06:59 06:59 Intake Total 3000 Balance 3000 Weight 77.2 kg General appearance: PRESENT: no acute distress Neck exam: ABSENT: JVD Respiratory exam: PRESENT: clear to auscultation ryley, symmetrical. ABSENT: chest wall tenderness, tachypnea, unlabored Cardiovascular exam: PRESENT: RRR, +S1, +S2. ABSENT: irregular rhythm, tachycardia GI/Abdominal exam: PRESENT: normal bowel sounds, soft. ABSENT: rebound, rigid, tenderness Musculoskeletal exam: PRESENT: full ROM - In the left hip and left knee though slow. She has full active range of motion., tenderness - In left knee pain fever at home palpation worse in lateral knee. Mild tenderness in the left hip. No vivid effusions noted. ABSENT: dislocation - Left knee does not appear dislocated. Neurological exam: PRESENT: alert, awake, oriented to person, oriented to place, oriented to time Results Laboratory Results: 10/13/19 07:05 10/13/19 07:05 10/13/19 10/13/19 10/13/19 07:05 07:05 08:05 WBC 10.3 RBC 2.57 L Hgb 9.1 L Hct 26.3 L MCV 102 H MCH 35.4 H MCHC 34.6 RDW 18.7 H Plt Count 355 Seg Neutrophils % Not Reportable Retic Count (auto) 7.33 H Sodium 141.5 Potassium 4.2 Chloride 105 Carbon Dioxide 24 Anion Gap 13 BUN 11 Creatinine 0.62 Est GFR ( Amer) > 60 Glucose 141 H Calcium 9.6 Total Bilirubin 2.7 H AST 45 H Alkaline Phosphatase 93 Total Protein 8.5 H Albumin 4.4 Urine Color YELLOW Urine Appearance CLEAR Urine pH 8.0 Ur Specific [place] 1.006 Urine Protein NEGATIVE Urine Glucose (UA) NEGATIVE Urine Ketones NEGATIVE Urine Blood SMALL H Urine Nitrite NEGATIVE Ur Leukocyte Esterase NEGATIVE Urine WBC (Auto) 1 Urine RBC (Auto) 1 10/13/19 07:05 Creatine Kinase 40 Assessment and Plan - Diagnosis (1) History of sickle cell anemia Is this a current diagnosis for this admission?: Yes (2) Pain of left lower extremity Is this a current diagnosis for this admission?: Yes - Plan Summary Summary: Hospitalist service requested for evaluation to see if patient needs admission for treatment of sickle cell pain episode given pain in her left hip, left knee and back. Patient's pain seems to be most prominent in her left knee on my evaluation especially worse on palpation of the lateral aspect of her left knee. I have explained to patient that I do not believe this to be from an acute pain episode caused by sickle cell vaso-occlusive crisis but rather I believe her symptoms are from musculoskeletal injury to those affected regions inflicted by the trauma of her grandchild falling on her left leg. I have reviewed her lab work, vitals and based on my physical examination and conversation with her, this seems to be more of a musculoskeletal injury to sickle cell acute pain episode. Patient needs evaluation for musculoskeletal injury and treatment for this as deemed necessary by primary ER provider. Patient does not need admission by Medicine service for management of her left lower extremity pain as this does not seem to be a sickle pain episode. I have discussed my treasure mmendations with patient and provider. I will sign off. - Time Time Spent with patient: 35 or more minutes
[2019-10-13 18:51] VITALS: BP 126/56
== END 2019-10-13 19:29 | disposition home or self-care (01) ==
LOC: ER 06:25 → UNDOADMIN 16:33 → EH 16:33 → UNDODISIN 18:06 → ER 19:29
DX: S80.02XA Contusion of left knee, initial encounter (principal); W50.0XXA Accidental hit or strike by another person, initial encounter; M25.562 Pain in left knee; M25.552 Pain in left hip; M79.605 Pain in left leg; M54.5 Low back pain; D57.1 Sickle-cell disease without crisis; R01.1 Cardiac murmur, unspecified; Z96.642 Presence of left artificial hip joint; Z91.013 Allergy to seafood; Z88.5 Allergy status to narcotic agent; Z88.6 Allergy status to analgesic agent; Z88.8 Allergy status to other drugs, medicaments and biological substances
CPT/HCPCS: 96376; 99284; 96361; 96374; 96375; 36415; 82550; 85025; 85045; 80053; 81001; L1830; J1170; J2405; J7030

== ENCOUNTER → 2020-04-08 | Outpatient (CLI) | payer MEDICARE, MEDICAID ==
[2020-04-08 10:58] LABS: HEMATOCRIT 26.4 % (36.0-47.0); HEMOGLOBIN 9.2 g/dL (12.0-15.5); MEAN CORPUSCULAR HEMOGLOBIN 35.5 pg (27.0-33.4); MEAN CORPUSCULAR HGB CONC 34.9 g/dL (32.0-36.0); MEAN CORPUSCULAR VOLUME 102 fl (80-97); PLATELET COUNT 308 10^3/uL (150-450); RED CELL DISTRIBUTION WIDTH 16.3 % (11.5-14.0)
[2020-04-08 11:37] LABS: ABSOLUTE LYMPHOCYTES# (MANUAL) 1.6 10^3/uL (0.5-4.7); ABSOLUTE MONOCYTES # (MANUAL) 0.4 10^3/uL (0.1-1.4); ANISOCYTOSIS 1+; BASOPHILS % (MANUAL) 0 % (0-2); EOSINOPHILS % (MANUAL) 4 % (0-6); LYMPHOCYTES % (MANUAL) 39 % (13-45); MONOCYTES % (MANUAL) 10 % (3-13); NUCLEATED RED BLOOD CELLS 2 /100 WBC (0); OVALOCYTES SLIGHT; POLYCHROMASIA SLIGHT; SEGMENTED NEUTROPHILS % (MAN) 47 % (42-78); TARGET CELLS 2+; TEAR DROP CELLS SLIGHT; TOTAL CELLS COUNTED 100
[2020-04-08 11:38] LABS: PLATELET COMMENT ADEQUATE
[2020-04-08 11:49] LABS: FREE T4 (FREE THYROXINE) 1.11 ng/dL (0.78-2.19); THYROID STIMULATING HORMONE 1.76 uIU/mL (0.47-4.68)
[2020-04-08 11:50] LABS: ALBUMIN 4.4 g/dL (3.5-5.0); ALKALINE PHOSPHATASE 92 U/L (38-126); ANION GAP 10 (5-19); ASPARTATE AMINO TRANSFERASE 37 U/L (14-36); BILIRUBIN,DIRECT 0.4 mg/dL (0.0-0.4); BILIRUBIN,TOTAL 2.5 mg/dL (0.2-1.3); BLOOD UREA NITROGEN 11 mg/dL (7-20); CALCIUM 9.1 mg/dL (8.4-10.2); CARBON DIOXIDE 26 mmol/L (22-30); CHLORIDE 103 mmol/L (98-107); CHOLESTEROL 148.86 mg/dL (0-200); DIRECT LDL 64 mg/dL (<100); GLUCOSE 106 mg/dL (75-110); POTASSIUM 4.5 mmol/L (3.6-5.0); TOTAL PROTEIN 7.7 g/dL (6.3-8.2); TRIGLYCERIDES 111 mg/dL (<150); VLDL CHOLESTEROL 22.2 mg/dL (10-31)
== END ==
LOC: OD 09:50
PROVIDERS: ATTEND Internal Medicine
DX: Z13.220 Encounter for screening for lipoid disorders (principal); E66.9 Obesity, unspecified; E55.9 Vitamin D deficiency, unspecified; Z79.899 Other long term (current) drug therapy
CPT/HCPCS: 36415; 80053; 80061; 82306; 84439; 84443; 85025

== ENCOUNTER 2020-05-15 14:47 | Emergency (ER) | payer MEDICARE, MEDICAID ==
[2020-05-15 15:42] LABS: HEMATOCRIT 27.8 % (36.0-47.0); HEMOGLOBIN 9.5 g/dL (12.0-15.5); MEAN CORPUSCULAR HEMOGLOBIN 35.3 pg (27.0-33.4); MEAN CORPUSCULAR HGB CONC 34.2 g/dL (32.0-36.0); MEAN CORPUSCULAR VOLUME 103 fl (80-97); PLATELET COUNT 292 10^3/uL (150-450); RED BLOOD COUNT 2.68 10^6/uL (3.72-5.28); WHITE BLOOD COUNT 6.8 10^3/uL (4.0-10.5)
[2020-05-15 16:05] LABS: ABSOLUTE LYMPHOCYTES# (MANUAL) 2.3 10^3/uL (0.5-4.7); ABSOLUTE MONOCYTES # (MANUAL) 0.6 10^3/uL (0.1-1.4); BASOPHILS % (MANUAL) 0 % (0-2); EOSINOPHILS % (MANUAL) 2 % (0-6); LYMPHOCYTES % (MANUAL) 34 % (13-45); MONOCYTES % (MANUAL) 9 % (3-13); NUCLEATED RED BLOOD CELLS 2 /100 WBC (0); SEGMENTED NEUTROPHILS % (MAN) 55 % (42-78); TOTAL CELLS COUNTED 100
[2020-05-15 16:09] LABS: ANISOCYTOSIS 1+; BURR CELLS SLIGHT; OVALOCYTES 1+; PLATELET COMMENT ADEQUATE; POIKILOCYTOSIS 1+; POLYCHROMASIA SLIGHT; SCHISTOCYTES SLIGHT; TARGET CELLS 1+; TEAR DROP CELLS SLIGHT; TROPONIN I 0.016 ng/mL
[2020-05-15 16:12] LABS: CREATINE KINASE MB < 0.22 ng/mL (<4.55)
--- NOTE | 2020-05-15 17:02 | ER Document Report ---
ED Medical Screen (RME) - General Chief Complaint: Chest Tightness Stated Complaint: CHEST TIGHTNESS Primary Care Provider: PANKAJ CARDONA MD [Primary Care Provider] - Follow up as needed Notes: Patient is a 59-year-old -[place] female with a history of sickle cell who presents to the emergency department the chief complaint of left chest pain that began yesterday. She states it is intermittent in nature. Does not radiate. No provocative or palliative factors. She states she has been hospitalized in the past for sickle cell. She believes she has been diagnosed with acute chest syndrome at some point in her history. She states typically when she has a sickle cell crises flare there is an underlying reason and she is concerned for COVID-19. She states she is noticed some various aches and pains in different joints lately coupled with some chills and sweats. Denies any fever or cough. No nausea, vomiting or abdominal pain. No diarrhea. I have treated and performed a rapid initial assessment of this patient. A comprehensive ED assessment and evaluation of the patient, analysis of test results and completion of medical decision making process will be conducted by additional ED providers. PHYSICAL EXAMINATION: GENERAL: Well-appearing, well-nourished and in no acute distress. A&Ox4. Answers questions appropriately. TRAVEL OUTSIDE OF THE [place] IN LAST 30 DAYS: No - Related Data Allergies/Adverse Reactions: Shellfish * [Shellfish] Allergy (Unknown, Verified 02/23/19 14:32) ketorolac [Ketorolac] Allergy (Verified 02/23/19 14:32) morphine Allergy (Verified 02/23/19 14:32) Hives Past Medical History - Past Medical History Cardiac Medical History: Reports: Hx Heart Murmur Pulmonary Medical History: Denies: Hx Tuberculosis Renal/ Medical History: Denies: Hx Peritoneal Dialysis Psychiatric Medical History: Denies: Hx Depression Past Surgical History: Reports: Hx Orthopedic Surgery - L hip replacement. Denies: Hx Pacemaker - Immunizations Hx Diphtheria, Pertussis, Tetanus Vaccination: Yes Physical Exam - Vital signs Vitals: Temp Pulse Resp BP Pulse Ox 98.8 F 73 18 115/54 L 96 05/15/20 15:31 05/15/20 15:31 05/15/20 15:31 05/15/20 15:31 05/15/20 15:31 Course - Vital Signs Vital signs: Temp Pulse Resp BP Pulse Ox 98.8 F 73 18 115/54 L 96 05/15/20 15:31 05/15/20 15:31 05/15/20 15:31 05/15/20 15:31 05/15/20 15:31 - Laboratory Result Diagrams: 05/15/20 15:15 05/15/20 15:15 Laboratory results interpreted by me: 05/15/20 15:15 RBC 2.68 L Hgb 9.5 L Hct 27.8 L MCV 103 H MCH 35.3 H RDW 16.0 H Doctor's Discharge - Discharge Referrals: PANKAJ CARDONA MD [Primary Care Provider] - Follow up as needed
--- NOTE | 2020-05-15 17:37 | RADIOLOGY REPORT (SQ) ---
EXAM DESCRIPTION: CHEST SINGLE VIEW IMAGES COMPLETED DATE/TIME: 05/15/2020 4:10 pm REASON FOR STUDY: chest pain. COMPARISON: 09/22/2017 EXAM PARAMETERS: NUMBER OF VIEWS: One view. TECHNIQUE: Single frontal radiographic view of the chest acquired. RADIATION DOSE: NA LIMITATIONS: None. FINDINGS: LUNGS AND PLEURA: No opacities, masses or pneumothorax. No pleural effusion. MEDIASTINUM AND HILAR STRUCTURES: No masses. Contour normal. HEART AND VASCULAR STRUCTURES: Heart normal in size. Normal vasculature. BONES: No acute findings. HARDWARE: None in the chest. OTHER: No other significant finding. IMPRESSION: NO ACUTE RADIOGRAPHIC FINDING IN THE CHEST. TECHNICAL DOCUMENTATION: JOB ID: [id number] 2010 [employer]- All Rights Reserved Reading location - IP/workstation name: [email or web address]
[2020-05-15 17:41] LABS: ABSOLUTE RETICS # 0.181 10^6/uL (0.028-0.122); RETICULOCYTE COUNT (AUTO) 6.78 % (0.66-2.85)
--- NOTE | 2020-05-15 19:14 | EKG REPORT ---
SEVERITY:- BORDERLINE ECG - SINUS RHYTHM BORDERLINE INFERIOR Q WAVES : Confirmed by: Jackie Matthews 15-May-2020 19:14:13
[2020-05-15 22:10] LABS: ALBUMIN 4.7 g/dL (3.5-5.0); ALKALINE PHOSPHATASE 98 U/L (38-126); ANION GAP 5 (5-19); ASPARTATE AMINO TRANSFERASE 46 U/L (14-36); BILIRUBIN,DIRECT 0.3 mg/dL (0.0-0.4); BILIRUBIN,TOTAL 2.5 mg/dL (0.2-1.3); BLOOD UREA NITROGEN 13 mg/dL (7-20); CALCIUM 9.7 mg/dL (8.4-10.2); CARBON DIOXIDE 30 mmol/L (22-30); CHLORIDE 102 mmol/L (98-107); CREATINE KINASE 30 U/L (30-135); GLUCOSE 98 mg/dL (75-110); POTASSIUM 4.1 mmol/L (3.6-5.0); TOTAL PROTEIN 8.6 g/dL (6.3-8.2)
[2020-05-16 00:15] LABS: INTERNATIONAL RATION (INR) 1.08
[2020-05-16 00:16] LABS: PARTIAL THROMBOPLASTIN TIME 26.9 SEC (23.5-35.8)
[2020-05-16 02:50] LABS: APPEARANCE,URINE CLEAR; BILIRUBIN,URINE NEGATIVE (NEGATIVE); COLOR,URINE YELLOW; GLUCOSE, URINE NEGATIVE (NEGATIVE); KETONES,URINE NEGATIVE (NEGATIVE); PROTEIN,URINE NEGATIVE (NEGATIVE); URINE SPECIFIC GRAVITY 1.011
[2020-05-16 03:36] VITALS: BP 134/76
--- NOTE | 2020-05-16 05:33 | ER Document Report ---
Entered by MACY MARTINS SCRIBE 05/16/20 0149 Acting as scribe for:RAJENDRA REAVES IV, MD ED General - General Chief Complaint: Chest Tightness Stated Complaint: CHEST TIGHTNESS Time Seen by Provider: 05/16/20 01:38 Primary Care Provider: PANKAJ CARDONA MD [Primary Care Provider] - Follow up as needed Mode of Arrival: Ambulatory Information source: Patient Notes: This 59 year old female patient with a history of sickle cell disease presents to the ED today with complaints of intermittent left-sided chest tightness that started x2 days ago. Patient reports that she had a mild episode of sickle cell that affected her right knee and left elbow and that she took Ibuprofen that seemed to relieve the pain at the time of onset. She reports that yesterday morning, she felt some congestion to the left side of her chest. She states that when she typically has a sickle cell episode, there is an underlying issue and that she is concerned about Covid-19. Denies fever, cough, nausea, vomiting, diarrhea, or abdominal pain. TRAVEL OUTSIDE OF THE [place] IN LAST 30 DAYS: No - Related Data Allergies/Adverse Reactions: Shellfish * [Shellfish] Allergy (Unknown, Verified 02/23/19 14:32) ketorolac [Ketorolac] Allergy (Verified 02/23/19 14:32) morphine Allergy (Verified 02/23/19 14:32) Hives Past Medical History - General Information source: Patient, [facility] Records - Social History Smoking Status: Never Smoker Cigarette use (# per day): No Chew tobacco use (# tins/day): No Smoking Education Provided: No Frequency of alcohol use: Occasional Drug Abuse: None Family History: Reviewed & Not Pertinent Patient has suicidal ideation: No Patient has homicidal ideation: No - Past Medical History Cardiac Medical History: Reports: Hx Heart Murmur Past Surgical History: Reports: Hx Orthopedic Surgery - L hip replacement - Immunizations Hx Diphtheria, Pertussis, Tetanus Vaccination: Yes Hx Pneumococcal Vaccination: 11/20/09 Review of Systems - Review of Systems Constitutional: See HPI. denies: Fever EENT: No symptoms reported Cardiovascular: See HPI, Other - Chest tightness/congestion Respiratory: See HPI. denies: Cough Gastrointestinal: See HPI. denies: Abdominal pain, Diarrhea, Nausea, Vomiting Genitourinary: No symptoms reported Female Genitourinary: No symptoms reported Musculoskeletal: No symptoms reported Skin: No symptoms reported Hematologic/Lymphatic: No symptoms reported Neurological/Psychological: No symptoms reported -: Yes All other systems reviewed and negative Physical Exam - Vital signs Vitals: Temp Pulse Resp BP Pulse Ox 98.8 F 73 18 115/54 L 96 05/15/20 15:31 05/15/20 15:31 05/15/20 15:31 05/15/20 15:31 05/15/20 15:31 - General General appearance: Appears well, Alert In distress: None - HEENT Head: Normocephalic, Atraumatic Eyes: Normal Pupils: PERRL - Respiratory Respiratory status: No respiratory distress Chest status: Nontender Breath sounds: Normal Chest palpation: Normal - Cardiovascular Rhythm: Regular Heart sounds: Normal auscultation Murmur: No Friction rub: No Gallop: None auscultated - Abdominal Inspection: Normal Distension: No distension Bowel sounds: Normal Tenderness: Nontender - Abdomen soft Organomegaly: No organomegaly - Back Back: Normal, Nontender - Extremities General upper extremity: Normal inspection General lower extremity: Normal inspection - Neurological Neuro grossly intact: Yes Orientation: AAOx4 Wendy Coma Scale Eye Opening: Spontaneous [place] Coma Scale Verbal: Oriented [place] Coma Scale Motor: Obeys Commands Wendy Coma Scale Total: 15 - Psychological Associated symptoms: Normal affect, Normal mood - Skin Skin Temperature: Warm Skin Moisture: Dry Skin Color: Normal Course - Re-evaluation Re-evalutation: 05/16/20 03:08 Results of ED MSE discussed with patient. All questions were answered prior to discharge. Emergency signs and symptoms, reasons to return to the emergency department discussed with patient. - Vital Signs Vital signs: Temp Pulse Resp BP Pulse Ox 98.8 F 73 18 115/54 L 99 05/16/20 01:18 05/15/20 15:31 05/15/20 15:31 05/15/20 15:31 05/16/20 01:25 - Laboratory Result Diagrams: 05/15/20 15:15 05/15/20 21:34 Laboratory results interpreted by me: 05/15/20 05/15/20 05/15/20 15:15 15:15 21:34 RBC 2.68 L Hgb 9.5 L Hct 27.8 L MCV 103 H MCH 35.3 H RDW 16.0 H Reticulocyte # 0.181 H Retic Count (auto) 6.78 H Total Bilirubin 2.5 H AST 46 H Total Protein 8.6 H Urine Urobilinogen 05/16/20 02:20 RBC Hgb Hct MCV MCH RDW Reticulocyte # Retic Count (auto) Total Bilirubin AST Total Protein Urine Urobilinogen 4.0 H - Diagnostic Test Radiology reviewed: Reports reviewed - EKG Interpretation by Me Additional EKG results interpreted by me: 05/16/20 02:30 EKG obtained 05/15/2020 at 1505 hrs. was interpreted by this MD. Findings normal sinus rhythm, rate 77, normal axis, P waves preceding QRS complexes, QRS complexes appear narrow, there are no obvious patterns of ST segment elevation or depression present to suggest acute myocardial ischemia or infarction. Imp ression: Normal sinus rhythm with nonspecific ST segments. Discharge - Discharge Clinical Impression: Encounter for screening laboratory testing for COVID-19 virus Chest pain Qualifiers: Chest pain type: unspecified Qualified Code(s): R07.9 - Chest pain, unspecified Arthralgia Qualifiers: Joint pain location: unspecified Qualified Code(s): M25.50 - Pain in unspecified joint Condition: Stable Disposition: HOME, SELF-CARE Instructions: COVID-19 Guidance for Persons Under Investigation Additional Instructions: Return to the Emergency Department without delay if any worse. You have been tested for COVID 19. It is important that she self quarantine until you are informed of the results of your COVID test. This typically takes approximately 5 days. HOME CARE INSTRUCTIONS & INFORMATION: Thank you for choosing us for your medical needs. We hope you're satisfied with the care you received. After you leave, you must properly care for your problem and, at the same time, observe its progress. Any condition can change. Some illnesses can change rapidly over hours or days. If your condition worsens, return to the Emergency Department or see your physician promptly. ABOUT YOUR X-RAYS AND EKG'S: If you had an EKG or X-rays taken, they have been read by the Emergency Physician. The X-rays and EKG's will also be read by a Radiologist or Manager Hardware within 24 hours. If discrepancies are noted, you will be notified by telephone. Please be certain the ED has a correct telephone number & address where you can be reached. Also, realize that some fractures or abnormalities do not show up on initial X-rays. If your symptoms continue, see your physician. ABOUT YOUR LABORATORY TEST: If you had laboratory tests, the results have been reviewed by the Emergency Physician. Some test results (for example cultures) may not be available for several days. You will be contacted if any test result shows you need additional treatment. Please be certain the ED has a correct telephone number and address where you can be reached. ABOUT YOUR MEDICATIONS: You will receive instructions on how to take your medicine on the prescription label you receive. Additional information may be provided by the Pharmacy. If you have questions afterwards, call the ED for clarification or further instructions. Some prescribed medications may cause drowsiness. Do not perform tasks such as driving a car or operating machinery without consulting your Pharmacist. If you feel you need a refill of pain medication, your condition will need re-evaluation. Please do not call for a refill of any medication. ABOUT YOUR SIGNATURE: Signature of this document acknowledges to followin. Understanding that you received emergency treatment and that you may be released before al medical problems are known or treated. Please be certain the ED has a correct phone number & address where you can be reached. 2. Acknowledgement that you will arrange for follow-up care as recommended. 3. Authorization for the Emergency Physician to provide information to your follow-up Physician in order to maximize your care. AT ANY TIME, IF YOUR SYMPTOMS CHANGE SIGNIFICANTLY OR WORSEN OR YOU DEVELOP NEW SYMPTOMS, RETURN TO THE EMERGENCY DEPARTMENT IMMEDIATELY FOR RE-EVALUATION. OUR GOAL IS TO PROVIDE EXCELLENT MEDICAL CARE! WE HOPE THAT WE HAVE MET YOUR EXPECTATIONS DURING YOUR EMERGENCY DEPARTMENT VISIT AND THAT YOU FEEL YOU HAVE RECEIVED EXCELLENT CARE! Chest Pain of Unclear Cause The exact cause of your chest pain isn't clear. Fortunately, there is no evidence of a dangerous medical condition. Further testing may be required to find the source of the pain. Most often, we find that this pain is coming from the chest wall -- the muscles or rib joints in the chest. But chest pain can come from the lung and lung lining, the esophagus, the heart valves or heart lining, and even the st omach or gallbladder. Rest. Eat lightly until the pain is gone. We may prescribe medicine for sonal n and inflammation. You should call the physician immediately if the pain radiates to the shoulder, jaw or arms; if you start to run a fever or develop a cough; or if you develop shortness of breath, or other new or alarming symptoms. Referrals: PANKAJ CARDONA MD [Primary Care Provider] - Follow up as needed I personally performed the services described in the documentation, reviewed and edited the documentation which was dictated to the scribe in my presence, and it accurately records my words and actions.
== END 2020-05-16 03:36 | disposition home or self-care (01) ==
LOC: ER 14:47
DX: R07.89 Other chest pain (principal); M25.50 Pain in unspecified joint; D57.1 Sickle-cell disease without crisis; Z88.6 Allergy status to analgesic agent; Z96.642 Presence of left artificial hip joint; Z20.828 Contact with and (suspected) exposure to other viral communicable diseases
CPT/HCPCS: 93005; 99284; 36415; 82553; 82550; 85025; 85610; 85730; 85045; 80053; 81001; 84484; 71045; 93010; U0003; C9803; 87635

== ENCOUNTER → 2020-08-12 | Outpatient (CLI) | payer MEDICARE, MEDICAID ==
--- NOTE | 2020-08-12 08:54 | WOMENS IMAGING REPORT ---
EXAM DESCRIPTION: U/S ABDOMEN LIMITED IMAGES COMPLETED DATE/TIME: 08/12/2020 8:28 am REASON FOR STUDY: R10.13 EPIGASTRIC PAIN R10.13 EPIGASTRIC PAIN Z12.31 ENCNTR SCREEN MAMMOGRAM FOR MALIGNANT NEOPLASM OF [place]IDAS COMPARISON: None. TECHNIQUE: Dynamic and static grayscale images acquired of the abdomen and recorded on PACS. Additio nal selected color Doppler and spectral images recorded. LIMITATIONS: None. FINDINGS: PANCREAS: No masses. Visualized pancreatic duct normal caliber. LIVER: No masses. Echotexture normal. LIVER VASCULATURE: Normal directional flow of the main portal vein and hepatic veins. GALLBLADDER: Gallstone(s). No pericholecystic fluid. No wall thickening. ULTRASOUND-DETECTED HOFFMAN'S SIGN: Negative. INTRAHEPATIC DUCTS AND COMMON DUCT: CBD and intrahepatic ducts normal caliber. No filling defects. INFERIOR VENA CAVA: Normal flow. AORTA: No aneurysm. RIGHT KIDNEY: Normal size. Normal echogenicity. No solid or suspicious masses. No hydronephrosis. No calcifications. PERITONEAL AND RIGHT PLEURAL SPACE: No ascites or effusions. OTHER: No other significant findings. IMPRESSION: Gallstones. No other significant findings. TECHNICAL DOCUMENTATION: JOB ID: [id number] 2010 [employer]- All Rights Reserved Reading location - IP/workstation name: [email or web address]
--- NOTE | 2020-08-12 09:38 | WOMENS IMAGING REPORT ---
EXAM DESCRIPTION: BILAT SCREENING MAMMO W/CAD IMAGES COMPLETED DATE/TIME: 08/12/2020 9:07 am REASON FOR STUDY: Z12.31 ENCNTR SCREEN MAMMOGRAM FOR MALIGNANT NEOPLASM OF BREAST R10.13 EPIGASTRIC PAIN Z12.31 ENCNTR SCREEN MAMMOGRAM FOR MALIGNANT NEOPLASM OF [place] COMPARISON: Multiple since 2010 EXAM PARAMETERS: Standard craniocaudal and mediolateral oblique views of each breast recorded using digital acquisition. Read with the assistance of CAD. .[facility] - [employer] Developer Version 9.2 LIMITATIONS: None. FINDINGS: Findings present which are benign by mammographic criteria. No suspicious masses, calcifi cations or architectural distortion. Pertinent benign findings: Benign calcifications bilaterally Benign mammographic findings may include one or more of the following: Smooth masses, popcorn/rim/co arse calcifications, asymmetries, post-procedure changes, and lesions with long-standing stability. IMPRESSION: BENIGN MAMMOGRAPHIC FINDINGS. BIRADS 2 BREAST DENSITY: c. The breasts are heterogeneously dense, which may obscure small masses. BIRAD: ASSESSMENT: 2 BENIGN FINDING(S) RECOMMENDATION: ROUTINE SCREENING Please continue yearly bilateral screening mammography/tomosynthesis in July 2021 COMMENT: The patient has been notified of the results by letter per MQSA requirements. Additional no tification policies are in place for contacting patient with suspicious or incomplete findings. Quality ID #[id number]: The [employer] recommends an annual screening mammogram for women aged 40 years or over. This facility utilizes a reminder system to ensure that all patients receive reminder letters, and/or direct phone calls for appointments. This includes reminders for routine scr eening mammograms, diagnostic mammograms, or other Breast Imaging Interventions when appropriate. Th is patient will be placed in the appropriate reminder system. TECHNICAL DOCUMENTATION: FINDING NUMBER: (1) ASSESSMENT: (1) JOB ID: [id number] 2010 [employer]- All Rights Reserved Reading location - IP/workstation name: [email or web address]
== END ==
LOC: RAD 07:40
PROVIDERS: ATTEND Physician Assistant
DX: Z12.31 Encounter for screening mammogram for malignant neoplasm of breast (principal); K80.80 Other cholelithiasis without obstruction; R10.13 Epigastric pain
CPT/HCPCS: 76705; 77067